=== PATIENT | male | born 1935 | race Caucasian/White ===

== ENCOUNTER 2016-09-18 03:10 | Inpatient (IN) | payer MEDICARE ==
[~2016-09-18] VITALS: Ht 170.2 cm; Wt 70.0 kg
[~2016-09-18 03:10] MED LIST: CARV12.52 PO; CLON1 PO; CLOP75 PO; D31000CA PO; DUONI NEB; FURO10S PO; GABA300C3 PO; LIDO5DIS35 TD; LISI-360 PO; POTA10IN2 PO; TAMS0.4C67 PO; UMEC1AER; VENTAER INH; ZOCO80TA PO; voltaren gel
[2016-09-18 03:22] VITALS: BP 126/72; PULSE 74; RESP 18; TEMP 98.4; O2SAT 96
[2016-09-18] MEDS ORDERED: GABA100C4 PO (03:33)
[2016-09-18] MEDS ORDERED: VITA100018 PO (03:33)
[2016-09-18] MEDS ORDERED: K-TA10TA PO (03:33)
[2016-09-18] MEDS ORDERED: CLON1TAB PO (03:33)
[2016-09-18] MEDS ORDERED: TAMS0.4C4 PO (03:33)
[2016-09-18] MEDS ORDERED: CARV12.52 PO (03:33)
[2016-09-18] MEDS ORDERED: SIMV40TA PO (03:33)
[2016-09-18] MEDS ORDERED: CLOP75TA PO (03:33)
[2016-09-18] MEDS ORDERED: FURO20TA PO (03:33)
[2016-09-18] MEDS ORDERED: LISI-519 PO (03:33)
--- NOTE | 2016-09-18 03:39 | PD ---
HPI Chief Complaint: Neuro Symptoms/ Deficits Time Seen by Provider: 03:32 Travel History International Travel<30 days: No Contact w/Intl Traveler<30days: No Traveled to known affect area: No History of Present Illness HPI Patient 81-year-old male with a history of stroke presents emergency Department with his spouse for complaints of increased weakness over the past 48 hours. Per his patient is become quite weak and has fallen multiple times overnight which prompted her to bring him into the emergency department. She is also noticed increased slurred speech during this time. No fevers no chest pain or shortness of breath no headache. PFSH Past Medical History Hx Anticoagulant Therapy: Yes (PLAVIX) Arthritis: Yes Blood Disorders: No Anxiety: Yes Depression: Yes Cancer: No Cardiac Catheterization: Yes (1989, 1995) Cardiovascular Problems: Yes ([place], HTN, CHOL) High Cholesterol: Yes Chest Pain: Yes Congestive Heart Failure: Yes Cerebrovascular Accident: Yes (CVA) Coronary Artery Disease: Yes Diabetes: No Diminished Hearing: No Endocrine: Yes GERD: Yes Genitourinary: No Headaches: Yes Herniated Disk: Yes Hypertension: Yes Immune Disorder: No Musculoskeletal: Yes Neurologic: Yes (TREMORS) Psychiatric: No Reproductive: No Respiratory: Yes (COPD) Myocardial Infarction: Yes Ulcer: Yes Tetanus Vaccination: Unknown Influenza Vaccination: No Past Surgical History Abdominal Surgery: Yes (bleeding ulcer in stomach surgery) Body Medical Devices: 3 stents Cardiac Surgery: Yes (CABG X5 IN 2005 ) Coronary Artery Bypass Graft: Yes (CABG X 5 IN 2005) Coronary Stent: Yes Tonsillectomy: Yes Other Surgery: Yes Social History Alcohol Use: No Tobacco Use: Yes (1/2 PACK A DAY ) Substance Use: No Allergies-Medications (Allergen,Severity, Reaction): Coded Allergies: No Known Allergies (Verified , 12/28/15) Reported Meds & Prescriptions Reported Meds & Active Scripts Active Reported Proair Hfa 8.5 GM Inh (Albuterol Sulfate) 90 Mcg/Act Aer 1 Puff INH Q4H PRN 108 mcg/actuation Spiriva Respimat Inh (Tiotropium Inh) 2.5 Mcg/Act Aero 2 Puff INH DAILY 2.5 mcg = 1 inhalation Metformin (Metformin HCl) 500 Mg Tab 500 Mg PO BIDPC With meals Sertraline (Sertraline HCl) 25 Mg Tab 25 Mg PO DAILY Vitamin D3 (Cholecalciferol) 1,000 Unit Tab 1,000 Units PO DAILY K-Tab (Potassium Chloride) 10 Meq Tab 10 Meq PO BID PRN Simvastatin 40 Mg Tab 40 Mg PO HS Furosemide 20 Mg Tab 20 Mg PO DAILY PRN Carvedilol 12.5 Mg Tab 12.5 Mg PO BID Lisinopril 5 Mg Tab 5 Mg PO DAILY Clopidogrel (Clopidogrel Bisulfate) 75 Mg Tab 75 Mg PO DAILY Clonazepam 1 Mg Tab 1 Mg PO HS Tamsulosin (Tamsulosin HCl) 0.4 Mg Cap 0.4 Mg PO HS Gabapentin 100 Mg Cap 100-300 Mg PO HS PRN Review of Systems Except as stated in HPI: all other systems reviewed are Neg Physical Exam Narrative GENERAL: Well-developed, well-nourished, appears older than stated age in no apparent distress. SKIN: Focused skin assessment warm/dry. HEAD: Atraumatic. Normocephalic. EYES: Pupils equal and round. No scleral icterus. No injection or drainage. ENT: No nasal bleeding or discharge. Mucous membranes pink and moist. NECK: Trachea midline. No JVD. CARDIOVASCULAR: Regular rate and rhythm. No murmur appreciated. RESPIRATORY: No accessory muscle use. Clear to auscultation. Breath sounds equal bilaterally. GASTROINTESTINAL: Abdomen soft, non-tender, nondistended. Hepatic and splenic margins not palpable. MUSCULOSKELETAL: No obvious deformities. No clubbing. No cyanosis. No edema. NEUROLOGICAL: Awake and alert. No nerves II through XII are grossly intact and nonfocal, 5 out of 5 strength in all 4 extremity's. PSYCHIATRIC: Appropriate mood and affect; insight and judgment normal. Data Data Last Documented VS Vital Signs Date Time Temp Pulse Resp B/P Pulse Ox O2 Delivery O2 Flow Rate FiO2 09/18/16 06:47 68 18 138/65 100 Room Air 09/18/16 03:22 98.4 Orders Electrocardiogram (09/18/16 03:32) Complete Blood Count With Diff (09/18/16 03:32) Comprehensive Metabolic Panel (09/18/16 03:32) Creatine Kinase (Cpk) (09/18/16 03:32) Prothrombin Time / Inr (Pt) (09/18/16 03:32) Act Partial Throm Time (Ptt) (09/18/16 03:32) Troponin I (09/18/16 03:32) Urinalysis - C+S If Indicated (09/18/16 03:32) Chest, Single Ap (09/18/16 03:32) Ct Brain W/O Iv Contrast(Rout) (09/18/16 03:32) Blood Glucose (09/18/16 03:32) Ecg Monitoring (09/18/16 03:32) Iv Access Insert/Monitor (09/18/16 03:32) Oximetry (09/18/16 03:32) Sodium Chloride 0.9% Flush (Ns Flush) (09/18/16 03:45) Hip, Ap Only W Ap Pelvis (09/18/16 ) Admit To Inpatient (09/18/16 ) Code Status (09/18/16 07:38) Vital Signs (Adult) Q4H (09/18/16 07:38) Activity Oob With Assistance (09/18/16 07:38) Morgue Technician / Telemetry .CONTINUOUS (09/18/16 07:38) Diet Heart Healthy (09/18/16 Breakfast) Sodium Chloride 0.9% Flush (Ns Flush) (09/18/16 07:45) Sodium Chloride 0.9% Flush (Ns Flush) (09/18/16 09:00) Acetaminophen (Tylenol) (09/18/16 07:45) Ondansetron Inj (Zofran Inj) (09/18/16 07:45) Temazepam (Restoril) (09/18/16 07:45) Pt Request For Service (09/18/16 07:38) Scd Bilateral/Knee High JAILYN.BID (09/18/16 07:38) Naloxone Inj (Narcan Inj) (09/18/16 07:45) Magnesium Hydroxide Liq (Milk Of Magnesi (09/18/16 07:45) Inpatient Certification (09/18/16 ) Echo 2d Comp With Doppler (09/18/16 ) Holter Monitor Recording (09/18/16 ) Thyroid Stimulating Hormone (09/18/16 07:41) Free Thyroxine (T4) (09/18/16 07:41) Rapid Plasma Regin (Rpr) W Ttr (09/18/16 07:41) Vitamin B12 (09/18/16 07:41) Folate, Serum (09/18/16 07:41) Ammonia (09/18/16 07:41) Mra Brain W/O Contrast (Cow) (09/18/16 ) Us Carotid Arteries Comp Bilat (09/18/16 ) Mri Brain W/O Contrast (09/18/16 ) Admit Order (Ed Use Only) (09/18/16 07:52) Labs Laboratory Tests Test 09/18/16 04:00 White Blood Count 6.5 TH/MM3 Red Blood Count 4.48 MIL/MM3 Hemoglobin 14.5 GM/DL Hematocrit 43.6 % Mean Corpuscular Volume 97.2 FL Mean Corpuscular Hemoglobin 32.4 PG Mean Corpuscular Hemoglobin 33.3 % Concent Red Cell Distribution Width 13.3 % Platelet Count 155 TH/MM3 Mean Platelet Volume 8.8 FL Neutrophils (%) (Auto) 53.1 % Lymphocytes (%) (Auto) 29.5 % Monocytes (%) (Auto) 10.0 % Eosinophils (%) (Auto) 6.9 % Basophils (%) (Auto) 0.5 % Neutrophils # (Auto) 3.5 TH/MM3 Lymphocytes # (Auto) 1.9 TH/MM3 Monocytes # (Auto) 0.7 TH/MM3 Eosinophils # (Auto) 0.4 TH/MM3 Basophils # (Auto) 0.0 TH/MM3 CBC Comment DIFF FINAL Differential Comment Prothrombin Time 11.3 SEC Prothromb Time International 1.0 RATIO Ratio Activated Partial 25.8 SEC Thromboplast Time Sodium Level 143 MEQ/L Potassium Level 4.0 MEQ/L Chloride Level 109 MEQ/L Carbon Dioxide Level 24.5 MEQ/L Anion Gap 10 MEQ/L Blood Urea Nitrogen 22 MG/DL Creatinine 1.41 MG/DL Estimat Glomerular Filtration 48 ML/MIN Rate Random Glucose 93 MG/DL Calcium Level 8.6 MG/DL Total Bilirubin 0.4 MG/DL Aspartate Amino Transf 19 U/L (AST/SGOT) Alanine Aminotransferase 24 U/L (ALT/SGPT) Alkaline Phosphatase 94 U/L Total Creatine Kinase 139 U/L Troponin I LESS THAN 0.02 NG/ML Total Protein 6.7 GM/DL Albumin 3.6 GM/DL [facility] Medical Decision Making Medical Screen Exam Complete: Yes Emergency Medical Condition: Yes Differential Diagnosis Subacute stroke, vascular dementia, electro-light abnormality, dehydration, urinary tract infection. Narrative Course Patient was roomed emergency department, his laboratory workup was initiated. His is highly concerned about his ability to go home given his weakness and frequent falls at home. I am in agreement. Awaiting for a return page from [facility]. I have discussed with case management and they're pursuing a [id number] performed for the patient. Diagnosis Primary Impression: Weakness Additional Impression: CVA (cerebral vascular accident) Admitting Information Admitting Physician Requests: Observation Condition: Stable Rd Holder MD Sep 18, 2016 03:39
[2016-09-18] MEDS ORDERED: SODIUM CHLORIDE 0.9% FLUSH 5 ML FLUSH IV FLUSH PRN (03:45)
--- NOTE | 2016-09-18 03:57 | RADRPT ---
EXAM DATE/TIME: 09/18/2016 03:43 [facility] COMPARISON: Report only MRI BRAIN W/O CONTRAST, September 04, 2009, 12:29. INDICATIONS : Altered mental status. RADIATION DOSE: 42.22 CTDIvol (mGy) MEDICAL HISTORY : Cerebrovascular disease. Myocardial infarction. Hypertension. SURGICAL HISTORY : CABG Coronary artery stent. ENCOUNTER: Initial ACUITY: 1 day PAIN SCALE: 0/10 LOCATION: cranial TECHNIQUE: Multiple contiguous axial images were obtained of the head. Using automated exposure control and adj ustment of the mA and/or kV according to patient size, radiation dose was kept as low as reasonably a chievable to obtain optimal diagnostic quality images. FINDINGS: CEREBRUM: The ventricles are normal for age. No evidence of midline shift, mass lesion, hemorrhage or acute in farction. No extra-axial fluid collections are seen. Old right middle cerebral artery infarct noted. POSTERIOR FOSSA: The cerebellum and brainstem are intact. The 4th ventricle is midline. The cerebellopontine angle i s unremarkable. EXTRACRANIAL: The visualized portion of the orbits is intact. There is mucoperiosteal thickening of the visualized ethmoid air cells. SKULL: The calvaria is intact. No evidence of skull fracture. CONCLUSION: 1. No acute intracranial abnormality. 2. Remote right middle cerebral artery distribution infarct. 3. Mild sinusitis. Charles Diez MD on September 18, 2016 at 3:54 Board Certified Radiologist. This report was verified electronically.
[2016-09-18 04:30] VITALS: BP 126/72; PULSE 70; RESP 18; O2SAT 99
[2016-09-18 04:33] LABS: AUTOMATED NEUTROPHIL # 3.5 TH/MM3 (1.8-7.7); BASOPHIL % 0.5 % (0.0-2.0); EOSINOPHIL # 0.4 TH/MM3 (0-0.4); EOSINOPHIL % 6.9 % (0.0-4.0); HEMATOCRIT 43.6 % (39.0-51.0); HEMO FLAGS DIFF FINAL; LYMPH % 29.5 % (9.0-44.0); LYMPHOCYTE # 1.9 TH/MM3 (1.0-4.8); MEAN CELL VOLUME 97.2 FL (80.0-100.0); MEAN CORPUSCULAR HEMOGLOBIN 32.4 PG (27.0-34.0); MEAN CORPUSCULAR HGB CONC 33.3 % (32.0-36.0); NEUT % 53.1 % (16.0-70.0); PLATELET COUNT 155 TH/MM3 (150-450); RED BLOOD COUNT 4.48 MIL/MM3 (4.50-5.90); RED CELL DISTRIBUTION WIDTH 13.3 % (11.6-17.2); WHITE BLOOD COUNT 6.5 TH/MM3 (4.0-11.0)
--- NOTE | 2016-09-18 04:47 | RADRPT ---
EXAM DATE/TIME: 09/18/2016 03:52 [facility] COMPARISON: No previous studies available for comparison. INDICATIONS : Syncopal episode. Possible stroke. MEDICAL HISTORY : Chronic obstructive pulmonary disease. Stroke. Hypertension. Diabetes. SURGICAL HISTORY : CABG. Cardiac cath. ENCOUNTER: Initial ACUITY: 1 day PAIN SCORE: Non-responsive. LOCATION: chest FINDINGS: No infiltrate, effusion or pneumothorax. Heart size stable, upper limits of normal. Previous median s ternotomy and coronary artery bypass graft operation. CONCLUSION: No evidence of acute cardiopulmonary disease. Charles Diez MD on September 18, 2016 at 4:45 Board Certified Radiologist. This report was verified electronically.
--- NOTE | 2016-09-18 04:48 | RADRPT ---
EXAM DATE/TIME: 09/18/2016 03:48 [facility] COMPARISON: No previous studies available for comparison. INDICATIONS : Pain in right hip. Patient had a fall tonight. MEDICAL HISTORY : None. SURGICAL HISTORY : None. ENCOUNTER: Initial ACUITY: 1 day PAIN SCORE: Non-responsive. LOCATION: Right Hip FINDINGS: View of the right hip and pelvis was obtained. Femoral neck is intact. No fracture is seen. The so ft tissues are unremarkable. CONCLUSION: Intact hip and pelvis. Charles Diez MD on September 18, 2016 at 4:46 Board Certified Radiologist. This report was verified electronically.
[2016-09-18 04:51] LABS: APTT (PATIENT) 25.8 SEC (24.3-30.1); PROTHROMBIN TIME - PATIENT 11.3 SEC (9.8-11.6)
[2016-09-18 05:05] LABS: ALT (GPT) 24 U/L (12-78); ANION GAP 10 MEQ/L (5-15); AST (GOT) 19 U/L (15-37); BICARBONATE 24.5 MEQ/L (21.0-32.0); BLOOD UREA NITROGEN 22 MG/DL (7-18); CHLORIDE 109 MEQ/L (98-107); GLOMERULAR FILTRATION RATE 48 ML/MIN (>89); SODIUM (NA) 143 MEQ/L (136-145)
[2016-09-18 05:09] LABS: ALKALINE PHOSPHATASE 94 U/L (45-117); CREATINE KINASE 139 U/L (39-308); TOTAL BILIRUBIN ADULT 0.4 MG/DL (0.2-1.0)
[2016-09-18 05:22] VITALS: BP 114/66; PULSE 72; RESP 18; O2SAT 97
[2016-09-18 06:47] VITALS: BP 138/65; PULSE 68; RESP 18; O2SAT 100
[2016-09-18] MEDS ORDERED: ONDANSETRON HCL 4 MG/2 ML VIAL IVP PRN (07:45)
[2016-09-18] MEDS ORDERED: ACETAMINOPHEN 325 MG TAB PO PRN (07:45)
[2016-09-18] MEDS ORDERED: NALOXONE HCL 0.4 MG/ML AMP IV PRN (07:45)
[2016-09-18] MEDS ORDERED: MAGNESIUM HYDROXIDE SUSP 30 ML CUP PO PRN (07:45)
[2016-09-18] MEDS ORDERED: SODIUM CHLORIDE 0.9% FLUSH 10 ML FLUSH IV FLUSH PRN (07:45)
[2016-09-18] MEDS ORDERED: TEMAZEPAM 15 MG CAP PO PRN (07:45)
[2016-09-18 08:00] VITALS: BP 135/63; PULSE 68; RESP 18; O2SAT 100
[2016-09-18] MEDS ORDERED: SODIUM CHLORIDE 0.9% FLUSH 10 ML FLUSH IV FLUSH SCH (09:00)
--- NOTE | 2016-09-18 09:04 | HHI.HP ---
HPI Service [facility] Hospitalists Primary Care Physician Alexis Young, DO Admission Diagnosis weakness Travel History International Travel<30 Days: No Contact w/Intl Traveler <30 Da: No Traveled to Known Affected Are: No History of Present Illness Mr. Allison is an 81 y/o male with diabetes mellitus, hx of CAD/UT and hx of CVA in 2009 who presented to the ED at [facility] on 09/18/16 with his spouse for reported increased weakness over the past 48 hours. Per his patient he has become quite weak and has fallen multiple times overnight which prompted her to bring him into the emergency department. She has also noticed some questionable slurred speech during this time. No fevers, dizziness, chest pain , shortness of breath or headache. Head CT showed no acute intracranial abnormality, remote right middle cerebral artery distribution infarct, and mild sinusitis. Pts labs were relatively stable. Review of Systems Constitutional: DENIES: Fever, Chills, Dizziness Respiratory: DENIES: Shortness of breath Cardiovascular: DENIES: Chest pain Gastrointestinal: DENIES: Abdominal pain, Nausea, Vomiting Integumentary: DENIES: Rash Neurologic: COMPLAINS OF: Poor Balance, DENIES: Headache Past Family Social History Past Medical History CAD with hx of [place] Hx of CVA, in 2009 Cardiomyopathy Hyperlipidemia Diabetes mellitus, type 2 DDD Sciatica Hx of perforated PUD CKD, stage 3 COPD LE edema Depression Past Surgical History Arthroscopic knee surgery CABG x 5 in 2005 Coronary stenting AICD placement in 2006 Reported Medications -Vitamin D3 2,000 Units PO DAILY -K-Tab 10 Meq PO BID with Lasix PRN -Simvastatin 40 Mg PO HS -Furosemide 20 Mg PO DAILY PRN swelling -Carvedilol 12.5 Mg PO BID -Lisinopril 5 Mg PO DAILY -Clopidogrel (Clopidogrel Bisulfate) 75 Mg Tab 75 Mg PO DAILY -Clonazepam 1 Mg PO HS -Tamsulosin (Tamsulosin HCl) 0.4 Mg Cap 0.4 Mg PO HS -Gabapentin 100-300 Mg PO HS PRN Neuropathy ?Metformin 500 Mg PO BID ?Sertraline 25 Mg PO DAILY ?ProAir HFA 90mcg/Inh ii PUFFS Q4H PRN ?Spiriva 60 2.5mcg/5 Inh DAILY Allergies: Coded Allergies: No Known Allergies (Verified , 12/28/15) Family History Father at 70 y/o with CHF/CAD Social History No reported alcohol, tobacco or illicit drug use Physical Exam Vital Signs Vital Signs Date Time Temp Pulse Resp B/P Pulse Ox O2 Delivery O2 Flow Rate FiO2 09/18/16 08:00 68 18 135/63 100 Room Air 09/18/16 06:47 68 18 138/65 100 Room Air 09/18/16 05:22 72 18 114/66 97 Room Air 09/18/16 04:30 70 18 126/72 99 Room Air 09/18/16 03:31 Room Air 09/18/16 03:22 98.4 74 18 126/72 96 Physical Exam GENERAL: This is a well-nourished, well-developed patient, in no apparent distress. HEENT: Atraumatic. Normocephalic. No temporal or scalp tenderness. No scleral icterus. Airway patent. NECK: Trachea midline, supple, nontender. CARDIO: Regular. RESP: CTA bilaterally. No wheezes, rales, or rhonchi. ABD: +BS, soft, non-tender, nondistended. EXT: Extremities without clubbing, cyanosis, or edema. NEURO: Awake and alert. Motor and sensory grossly within normal limits. Laboratory Laboratory Tests Test 09/18/16 04:00 White Blood Count 6.5 Red Blood Count 4.48 Hemoglobin 14.5 Hematocrit 43.6 Mean Corpuscular Volume 97.2 Mean Corpuscular Hemoglobin 32.4 Mean Corpuscular Hemoglobin 33.3 Concent Red Cell Distribution Width 13.3 Platelet Count 155 Mean Platelet Volume 8.8 Neutrophils (%) (Auto) 53.1 Lymphocytes (%) (Auto) 29.5 Monocytes (%) (Auto) 10.0 Eosinophils (%) (Auto) 6.9 Basophils (%) (Auto) 0.5 Neutrophils # (Auto) 3.5 Lymphocytes # (Auto) 1.9 Monocytes # (Auto) 0.7 Eosinophils # (Auto) 0.4 Basophils # (Auto) 0.0 CBC Comment DIFF FINAL Differential Comment Prothrombin Time 11.3 Prothromb Time International 1.0 Ratio Activated Partial 25.8 Thromboplast Time Sodium Level 143 Potassium Level 4.0 Chloride Level 109 Carbon Dioxide Level 24.5 Anion Gap 10 Blood Urea Nitrogen 22 Creatinine 1.41 Estimat Glomerular Filtration 48 Rate Random Glucose 93 Calcium Level 8.6 Total Bilirubin 0.4 Aspartate Amino Transf 19 (AST/SGOT) Alanine Aminotransferase 24 (ALT/SGPT) Alkaline Phosphatase 94 Total Creatine Kinase 139 Troponin I LESS THAN 0.02 Total Protein 6.7 Albumin 3.6 Result Diagram: 09/18/1639909/18/16399 Imaging Last Impressions Head CT 09/18/162 Signed Impressions: Service Date/Time: Sunday, September 18, 2016 03:43 - CONCLUSION: 1. No acute intracranial abnormality. 2. Remote right middle cerebral artery distribution infarct. 3. Mild sinusitis. Charles Diez MD Chest X-Ray 09/18/162 Signed Impressions: Service Date/Time: Sunday, September 18, 2016 03:52 - CONCLUSION: No evidence of acute cardiopulmonary disease. Charles Diez MD Hip and Pelvis X-Ray 09/18/16 0000 Signed Impressions: Service Date/Time: Sunday, September 18, 2016 03:48 - CONCLUSION: Intact hip and pelvis. Charles Diez MD Assessment and Plan Problem List: (1) Weakness Status: Chronic Plan: - Pt is an 81 y/o male with CAD/hx of UT, diabetes mellitus, and hx of CVA in 2009. - He presented to the ED at [facility] on 09/18/16 with his spouse for reported increased weakness over the past 48 hours. with multiple falls at home. She has also noticed some questionable slurred speech during this time. - Head CT showed no acute intracranial abnormality, remote right middle cerebral artery distribution infarct, and mild sinusitis. - Pts labs were relatively stable. - MRI Brain (09/18) --> Old infarct in the right Sylvian region, no evidence of new ischemic changes, moderate periventricular white matter changes - MRA Brain (09/18) --> Truncation of the right posterior cerebral artery in the region of the P3 segment, may represent a distal occlusion, intracranial vessels are otherwise patent without aneurysmal disease, anatomic variant of the COW. - Carotid US --> pending - 2D echo --> pending - Holter Monitor --> pending - Home BP meds resumed - Plavix resumed - Supportive care - Pt being admitted for observation to r/o possible TIA - DVT prophylaxis (2) History of CVA (cerebrovascular accident) Status: Chronic Plan: - Pt with previous hx of CVA - Home meds resumed, BB/LAURO/Plavix/Statin (3) COPD (chronic obstructive pulmonary disease) Status: Chronic Plan: - Cont. Spiriva (4) Diabetes mellitus type 2, noninsulin dependent Status: Chronic Plan: - NovoLog SSI - Home OHA (5) CAD (coronary artery disease) Status: Chronic Plan: - Home meds continued Assessment and Plan Patient examined. Assessment and plan formulated with Emelina Ramirez PA-C. I agree with the above. MRI brain (09/18/16) - NO acute findings MRA brain (09/18/16) - area of restriction at posterior cerebral artery - echo --> pending interpretation - holter --> pending - overall, sounds like pt has Failure to Thrive - Per pt's , this has happened before and pt benefitted from SNF - Pt adamantly refuses SNF - Pt refuses continued hospitalization - I have arranged for HHC with Home PT upon discharge - Case d/w [facility] Case Management. They will offer pt enrollment in [facility] complex case mgmt program. Physician Certification 2 Midnight Certification Type: Admission for Inpatient Services Order for Inpatient Services The services are ordered in accordance with Medicare regulations or non- Medicare payer requirements, as applicable. In the case of services not specified as inpatient-only, they are appropriately provided as inpatient services in accordance with the 2-midnight benchmark. Estimated LOS (days): 2 2 days is the estimated time the patient will need to remain in the hospital, assuming treatment plan goals are met and no additional complications. Post-Hospital Plan: Not yet determined Emelina Ramirez Sep 18, 2016 09:04 Urban Dixon DO Sep 18, 2016 15:56
--- NOTE | 2016-09-18 09:43 | RADRPT ---
EXAM DATE/TIME: 09/18/2016 08:58 [facility] COMPARISON: No previous studies available for comparison. INDICATIONS : Slurred speech. MEDICAL HISTORY : Cerebrovascular disease. Myocardial infarction. Hypertension. SURGICAL HISTORY : Tonsillectomy. CABG, ulcer ENCOUNTER: Subsequent ACUITY: 1 day PAIN SCORE: 0/10 LOCATION: cranial Please note a normal MRA of the brain does not entirely exclude the possibility of a small aneurysm, nor the possibility of distal intracranial vessel disease. TECHNIQUE: 3D time of flight MRA was performed. Source images, multiplanar STS MIP, and 3D volume MIP reconstru ctions were reviewed. FINDINGS: There is excellent visualization of the major intracranial arteries out to the second-order branch ve ssels. There is no evidence for aneurysm and no evidence for vascular malformation. However, the rig ht posterior C1 appears to be truncated after the P3 segment which may represent focal occlusion. Int racranial vessels are otherwise patent. 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 The anterior to indicating artery is patent. 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 CONCLUSION: 1. Truncation of the right posterior cerebral artery in the region of the P3 segment. This may repres ent distal occlusion. Intracranial vessels are otherwise patent without aneurysmal disease. 2. Anatomic variant of the [place] as detailed above. Miah Mercedes MD on September 18, 2016 at 9:38 Board Certified Radiologist. This report was verified electronically.
--- NOTE | 2016-09-18 09:53 | RADRPT ---
EXAM DATE/TIME: 09/18/2016 08:58 [facility] COMPARISON: MRI BRAIN W/O CONTRAST, September 04, 2009, 12:29. INDICATIONS : Slurred speech. MEDICAL HISTORY : Hypertension. Myocardial infarction. Cerebrovascular disease. SURGICAL HISTORY : Tonsillectomy. CABG, ulcer ENCOUNTER: Subsequent ACUITY: 1 day PAIN SCORE: 0/10 LOCATION: Cranial TECHNIQUE: Multiplanar, multisequence MRI of the brain was performed without contrast. FINDINGS: There is no an old infarct in the right Sylvian region. Moderate periventricular white matter change s are noted. There is no new areas of restricted diffusion evident. Ventricular size is appropriate. There are no extraaxial fluid collections appreciated. Midline str uctures are intact. There is no parenchymal hemorrhage evident. CONCLUSION: 1. Old infarct in the right Sylvian region. 2. I do not see any evidence for new ischemic changes on the diffusion weighted imaging. 3. Moderate periventricular white matter changes. Connor Aguilar MD FACR on September 18, 2016 at 9:43 Board Certified Radiologist. This report was verified electronically.
[2016-09-18 10:00] VITALS: BP 129/75; PULSE 68; RESP 17; O2SAT 100
[2016-09-18] MEDS ORDERED: TIOT12.9 INH (11:05)
[2016-09-18] MEDS ORDERED: ALBUAER3 INH (11:05)
[2016-09-18] MEDS ORDERED: METF500T PO (11:05)
[2016-09-18] MEDS ORDERED: SERT25TA83 PO (11:05)
--- NOTE | 2016-09-18 11:55 | RADRPT ---
EXAM DATE/TIME: 09/18/2016 10:12 [facility] COMPARISON: No previous studies available for comparison. INDICATIONS : Transient ischemic attack. MEDICAL HISTORY : Myocardial infarction. Hypercholesterolemia. Arthritis. Tremors. CVA. HTN. CAD. Chest pain. COPD. HAY D. Herniated disk. Ulcer. Anticoagulant therapy, Plavix. Depression. Anxiety. SURGICAL HISTORY : Tonsillectomy. CABG. Coronary artery stent. Cardiac cath. Bleeding ulcer in stomach surgery. Back majo shanon. ENCOUNTER: Initial ACUITY: 1 day PAIN SCORE: 2/10 LOCATION: Bilateral neck PEAK SYSTOLIC VELOCITIES (cm/sec): ICA/CCA RATIO: Right: 1.3 Left: 1.8 ICA: Right: 76 Left: 122 CCA: Right: 57 Left: 69 ECA: Right: 98 Left: 88 VERTEBRAL: Right: 45 antegrade Left: 57 antegrade Elevated flow velocities and ICA/CCA ratios have been found to correlate with increased degrees of vessel stenosis, calculated as percentage of diameter relative to a normal segment of distal ICA/CCA FINDINGS: RIGHT CAROTID: Mild scattered atherosclerotic plaque. No significant stenosis is visualized. The waveforms are with in normal limits. LEFT CAROTID: Calcified atherosclerotic plaque involving the ICA origin generating a 50% stenosis by Turcios scale abdulkadir lysis. The waveforms are within normal limits. VERTEBRAL ARTERIES: Antegrade flow is seen in both vertebral arteries. MISCELLANEOUS: None. CONCLUSION: 1. Calcified plaque bilaterally but more abundant on the left. The right carotid is patent. 50% steno sis on the left. 2. Antegrade flow involving both vertebral arteries. Simeon Madden Jr., MD on September 18, 2016 at 11:50 Board Certified Radiologist. This report was verified electronically.
[2016-09-18] MEDS ORDERED: SERTRALINE HCL 50 MG TAB PO SCH (12:00)
[2016-09-18] MEDS: INSULIN ASPART SUPPLEMENTAL SCALE SQ SCH ×2 (12:00→16:00)
[2016-09-18] MEDS ORDERED: PT OWN MED: SPIRIVA RESPIMAT 2 INH DAILY INH SCH (12:00)
[2016-09-18] MEDS ORDERED: CLOPIDOGREL 75 MG TAB PO SCH (12:00)
[2016-09-18 12:54] LABS: FREE T4 0.86 NG/DL (0.76-1.46)
--- NOTE | 2016-09-18 15:57 | HHI.FF ---
Face to Face Verification Diagnosis: (1) Weakness (2) History of CVA (cerebrovascular accident) (3) CAD (coronary artery disease) (4) Diabetes mellitus type 2, noninsulin dependent (5) Right knee DJD (6) COPD (chronic obstructive pulmonary disease) Physical Therapy Order: Evaluate and Treat, Improve ambulation, Strength and gait training Home Health Nursing Order: Medical education Signs/symptoms of disease process Diabetic education Medication education-adverse effect Nursing assessment with vital signs I have seen patient Ivan Allison on 09/18/16. My clinical findings support the need for the requested home health care services because: Ltd mobility - disease progression Deconditioned w/ increased weakness Med compliance is questionable Limited ability to care for self Need for psychosocial assistance Impaired cognition/judgement I certify that my clinical findings support that this patient is homebound because: Impaired cognitive ability/safety Unsteady gait/balance Unsafe to leave home unassisted Need for psychosocial assistance Efg-atrsdzhvgf-xiqgolpr bed/chair Unable to use public transportation Urban Dixon DO Sep 18, 2016 15:57
--- NOTE | 2016-09-18 16:51 | ECHRPT ---
Indication: cva/tia CONCLUSIONS Severely dilated left ventricle. The left ventricular systolic function is severely reduced with an estimated ejection fraction less than 20%. There is global left ventricular dysfunction. Trace mitral valve regurgitation. Csrti-rc-zjkp mitral valve regurgitation. There is mild tricuspid valve regurgitation. Normal estimated pulmonary pressures. BP: 114 / 66 HR: 72 Rhythm: Sinus MEASUREMENTS (Male / Female) Normal Values Technical Quality:Fair 2D ECHO LV Diastolic Diameter PLAX 7.1 cm 4.2 - 5.9 / 3.9 - 5.3 cm LV Systolic Diameter PLAX 6.7 cm IVS Diastolic Thickness 0.9 cm 0.6 - 1.0 / 0.6 - 0.9 cm LVPW Diastolic Thickness 1.1 cm 0.6 - 1.0 / 0.6 - 0.9 cm LV Relative Wall Thickness 0.3 RV Internal Dim ED PLAX 2.3 cm M-MODE Aortic Root Diameter MM 3.5 cm LA Systolic Diameter MM 4.4 cm LA Ao Ratio MM 1.3 AV Cusp Separation MM 1.8 cm DOPPLER LV E' Lateral Velocity 23.2 cm/s LV E' Septal Velocity 5.2 cm/s TR Peak Velocity 216.0 cm/s TR Peak Gradient 18.7 mmHg FINDINGS LEFT VENTRICLE Severely dilated left ventricle. The left ventricular systolic function is severely reduced with an estimated ejection fraction less than 20%. There is global left ventricular dysfunction. MITRAL VALVE Trace mitral valve regurgitation. Emkdn-yt-skct mitral valve regurgitation. TRICUSPID VALVE There is mild tricuspid valve regurgitation. Normal estimated pulmonary pressures. OTHER FINDINGS dilated LV Mr/tr ef 15% Larui Galloway MD (Electronically Signed) Final Date:18 September 2016 16:51
--- NOTE | 2016-09-18 17:29 | EKG ---
Date Performed: 09/18/2016 Time Performed: 04:20:49 PTAGE: 81 years EKG: Sinus rhythm POSSIBLE RIGHT VENTRICULAR CONDUCTION DELAY SEPTAL MYOCARDIAL INFARCTION DIFFUSE ST-T CHANGES ABNORM AL ECG PREVIOUS TRACING : 12/28/2015 10.05 Compared to prior tracing no significant change DOCTOR: Helen Patrick Interpretating Date/Time 09/18/2016 17:27:58
[2016-09-18] MEDS ORDERED: PRAVASTATIN SOD 80 MG TAB PO SCH (21:00)
[2016-09-18] MEDS ORDERED: CARVEDILOL 12.5 MG TAB PO SCH (21:00)
[2016-09-18] MEDS ORDERED: clonazePAM 1 MG TAB PO SCH (21:00)
[2016-09-18] MEDS ORDERED: TAMSULOSIN HCL 0.4 MG CAP PO SCH (21:00)
[2016-09-19] MEDS ORDERED: LISINOPRIL 5 MG TAB PO SCH (09:00)
[2016-09-21 14:32] LABS: RAPID PLASMA REAGIN SCREEN NON-REACTIVE (NON-REACTVE)
== END 2016-09-18 16:58 | disposition home health service (06) | DRG 641 ==
LOC: NEPC 03:10 → NEDA 07:54 → N06A 11:13
PROVIDERS: ADMIT Hospitalist; ATTEND Hospitalist
DX: R62.7 Adult failure to thrive (principal); I42.9 Cardiomyopathy, unspecified; E11.22 Type 2 diabetes mellitus with diabetic chronic kidney disease; Z79.84 Long term (current) use of oral hypoglycemic drugs; J44.9 Chronic obstructive pulmonary disease, unspecified; R29.6 Repeated falls; R53.1 Weakness; Z86.73 Personal history of transient ischemic attack (TIA), and cerebral infarction without residual deficits; I12.9 Hypertensive chronic kidney disease with stage 1 through stage 4 chronic kidney disease, or unspecified chronic kidney disease; N18.3 Chronic kidney disease, stage 3 (moderate); F32.9 Major depressive disorder, single episode, unspecified; I25.10 Atherosclerotic heart disease of native coronary artery without angina pectoris; I25.2 Old myocardial infarction; E78.5 Hyperlipidemia, unspecified; Z95.1 Presence of aortocoronary bypass graft; Z95.5 Presence of coronary angioplasty implant and graft; Z95.810 Presence of automatic (implantable) cardiac defibrillator; Z79.02 Long term (current) use of antithrombotics/antiplatelets; Z87.11 Personal history of peptic ulcer disease
CPT/HCPCS: 70450; 70544; 70551; 71010; 73501; 80053; 82140; 82550; 82607; 82746; 82948; 84439; 84443; 84484; 85025; 85610; 85730; 86592; 93005; 93306; 93880

== ENCOUNTER 2018-01-31 20:00 | Inpatient (IN) ==
[2018-01-31 21:24] LABS: Bilirubin,Urine Negative (Negative); Clarity,Urine Slightly Cloudy (Clear); Color,Urine Yellow (Yellw/Straw); Glucose,Urine (UA) Negative (Negative); Leukocyte Esterase,Urine Trace (Negative); Nitrite,Urine Negative (Negative); Specific Gravity,Urine 1.025 (1.002-1.035); Urobilinogen,Urine 0.2 mg/dL (Less than 2)
[2018-01-31 21:26] LABS: Baso % (Auto) 0.4 % (0.0-2.0); Eos # (Auto) 0.2 th/mm3 (0.0-0.4); Hemoglobin 13.4 gm/dL (13.0-17.0); Lymph # (Auto) 0.9 th/mm3 (1.0-4.8); Lymph % (Auto) 12.1 % (9.0-44.0); Mean Corpuscular HGB Conc 34.3 % (32.0-36.0); Mean Corpuscular Hemoglobin 33.3 pg (27.0-34.0); Mean Corpuscular Volume 97.1 fL (80.0-100.0); Mono # (Auto) 0.5 th/mm3 (0.0-0.9); Mono % (Auto) 6.7 % (0.0-8.0); Neut # (Auto) 5.7 th/mm3 (1.8-7.7); Neut % (Auto) 77.8 % (16.0-70.0); Platelet Count 123 th/mm3 (150-450); Red Blood Count 4.02 mil/mm3 (4.50-5.90); Red Cell Distribution Width 13.9 % (11.6-17.2); White Blood Count 7.3 th/mm3 (4.0-11.0)
[2018-01-31 21:29] LABS: Amorphous Sediment,Urine Moderate /hpf; Bacteria,Urine Few /hpf; RBC,Urine 0-3 /hpf (0-3); Squamous Epithelial Cell,Urine 0-5 /hpf (0-5)
[2018-01-31 21:30] LABS: Mucus,Urine Few /lpf (Occasional)
--- NOTE | 2018-01-31 21:34 | XR ---
EXAM DATE: 01/31/2018 8:59 PM EDT AGE/SEX: 83 years / Male INDICATIONS: Shortness of breath. CLINICAL DATA: This is the patient's initial encounter. Patient reports that signs and symptoms have been present for 3 days and indicates a pain score of 0/10. MEDICAL/SURGICAL HISTORY: Chronic obstructive pulmonary disease. Hypertension. Diabetes. Str miguel. CABG. Cardiac catheterization. [place] [facility] [place]. . FINDINGS: Lungs are symmetrically aerated with bibasilar atelectatic changes. There is also some prominent inte rstitial markings characteristic of some degree of vascular congestion or volume overload. There is s ome blunting of the costophrenic angles, particularly on the right which may represent small effusion s. Findings of prior CABG with intact median sternotomy wires small coronary ostial rings. Heart size is prominent. 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 Cardiomegaly with interstitial prominence and small bilateral pleural effusions suggesting some d egree of vascular congestion/failure. 2. Bibasilar atelectatic changes. 3. Findings of prior CABG. Electronically signed by: Miah Mercedes MD 01/31/2018 9:33 PM EDT
[2018-01-31 21:35] LABS: Chloride 111 meq/L (98-107); Potassium 4.4 meq/L (3.5-5.1); Sodium 142 meq/L (136-145)
[2018-01-31 21:37] LABS: Activated Partial Thrombo Time 26.2 sec (24.3-30.1); INR 1.1 Ratio; Prothrombin Time 11.5 sec (9.8-11.6)
[2018-01-31 21:38] LABS: Albumin 3.5 g/dL (3.4-5.0); Anion Gap 8 meq/L (5-15); Carbon Dioxide 23.1 meq/L (21.0-32.0); Glucose,Random 112 mg/dL (74-106); Magnesium 2.2 mg/dL (1.5-2.5)
[2018-01-31 21:39] LABS: Blood Urea Nitrogen 25 mg/dL (7-18)
[2018-01-31 21:41] LABS: Alanine Aminotransferase 15 U/L (12-78); Aspartate Aminotransferase 11 U/L (15-37)
[2018-01-31 21:42] LABS: Glomerular Filtration Rate 64 mL/min (>89)
[2018-01-31 21:43] LABS: Total Protein 6.2 g/dL (6.4-8.2)
[2018-01-31 21:44] LABS: Alkaline Phosphatase 70 U/L (45-117)
[2018-01-31 21:49] LABS: Creatine Kinase 95 U/L (39-308)
--- NOTE | 2018-01-31 22:11 | ED ---
HPI General Chief Complaint: Shortness of Breath/Dyspnea Stated Complaint: SOB Time Seen by Provider: 01/31/18 20:59 Source: patient and family Mode of arrival: ambulatory Limitations: no limitations History of Present Illness 83-year-old male presents to the emergency department private transportation in the care of his spouse with history of CHF COPD AR CVA with complaint of intermittent but progressive worsening shortness of breath since Wednesday. No reported orthopnea or PND. Patient has had dyspnea with exertion and at rest. He was seen by his primary care provider today and received Solu-Medrol and updraft treatments and was encouraged to restart his Lasix as needed in the a.m. Patient has also been having chest discomfort which she complains as rib pain. states he has chronic rib pain and chronic back pain. states that he takes psrz-nwk-ctzghia ibuprofen for symptom relief and has had issues with narcotic dependency in the past. Patient is not followed by a supervisor wood room for some time according to the patient's and no recent cardiac evaluation or stress test. 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 Complaint: Reports shortness of breath Onset (ago): day(s) Context: Reports occurred during exertion Severity: moderate Consistency/Duration: intermittent and progressively worsening Relieving factors: nothing Exacerbating factors: exertion, movement and coughing Known history of: Reports COPD and congestive heart failure Associated symptoms: Reports chest pain, cough, wheezing and chest congestion; Denies fever, sputum production, orthopnea, lower extremity pain, paresthesias, palpitations, hemoptysis, diaphoresis, nausea/vomiting and abdominal pain Treatment prior to arrival: Reports bronchodilator Related Data Home oxygen amount: none Home Medications Medication Instructions Recorded Confirmed Ventolin HFA 01/31/18 Vitamin D3 01/31/18 carvedilol 12.5 mg PO DAILY 01/31/18 01/31/18 clopidogrel 75 mg PO DAILY 01/31/18 01/31/18 diclofenac sodium [Voltaren] 01/31/18 furosemide 20 mg PO DAILY 01/31/18 01/31/18 gabapentin 300 mg PO DAILY 01/31/18 01/31/18 lisinopril 5 mg PO DAILY 01/31/18 01/31/18 potassium chloride [K-Tab] 10 meq PO BID 01/31/18 01/31/18 simvastatin 40 mg PO QPM 01/31/18 01/31/18 tamsulosin 0.4 mg PO DAILY 01/31/18 01/31/18 umeclidinium-vilanterol [Anoro 01/31/18 Ellipta] Allergies Allergy/AdvReac Type Severity Reaction Status Date / Time No Known Allergies Allergy Verified 01/31/18 21:25 Review of Systems ROS: all other systems reviewed are negative [facility] Medical History Medical History Enlarged prostate (Acute) History of CHF (congestive heart failure) (Acute) History of COPD (Acute) History of CVA (cerebrovascular accident) (Acute) History of hypertension (Acute) History of myocardial infarction (Acute) Surgical History Surgical History History of angioplasty (Acute) Hx of heart bypass surgery (Acute) Social History Social History Substance History: No History of Abuse Second Hand Smoke Exposure: Yes Smoking Status: Current every day smoker Tobacco Type: Cigarettes How Often Do You Have a Drink Containing Alcohol: Never Recent Travel in [facility] within the Last 8 Weeks: No Recent Out of Country Travel within the Last 8 Weeks: No Immunization History Tetanus Immunization: Unsure Exam Narrative Exam Narrative: GENERAL: Well-nourished, well-developed patient. No acute distress although appears mildly short of breath with movement about the stretcher and exerting himself. SKIN: Focused skin assessment warm/dry. HEAD: Normocephalic. EYES: No scleral icterus. No injection or drainage. NECK: Supple, trachea midline. No JVD or lymphadenopathy. CARDIOVASCULAR: Regular rate and rhythm without murmurs, gallops, or rubs. RESPIRATORY: Breath sounds equal bilaterally with basilar crackles and expiratory wheezing. No accessory muscle use. GASTROINTESTINAL: Abdomen soft, non-tender, nondistended. MUSCULOSKELETAL: No cyanosis, mild bilateral ankle edema. Radial and dorsalis pedis pulses 2+ to palpation BACK: Nontender without obvious deformity. No CVA tenderness. Course Consultations Consultation #1: patient discussed with and accepted for admission by Dr South Initial Documented Vital Signs Temperature 97.6 F 01/31/18 20:07 Pulse Rate 75 01/31/18 20:07 Respiratory Rate 24 01/31/18 20:07 Blood Pressure 103/57 L 01/31/18 20:07 Pulse Oximetry 97 01/31/18 20:07 Last Documented Vital Signs Temperature 97.6 F 01/31/18 20:43 Pulse Rate 72 01/31/18 22:46 Respiratory Rate 22 01/31/18 22:46 Blood Pressure 99/59 L 01/31/18 22:46 Pulse Oximetry 97 01/31/18 22:46 Medical Decision Making MDM Narrative Medical decision making narrative: 83-year-old male with history of CHF COPD AR CVA presents for intermittent but progressive worsening shortness of breath since Wednesday. No reported orthopnea or PND. Patient has had dyspnea with exertion and at rest. She was seen by his primary care provider today and received Solu-Medrol and updraft treatments and was encouraged to restart his Lasix 20 mg as needed in the a.m. Patient here presents with CHF and mild exacerbation of COPD or associated exacerbation of COPD patient given updraft treatments and low-dose Lasix due to review of medical records identifying echo 2016 with EF less than 20% and global hypokinesis. Also presenting with low normal systolic blood pressure. Patient and spouse aware of plan for admission for chf troponin I less than 0.02 , not elevated ck total not elevated however bnp 595 and cxr c/w vascular congestion and rales noted on auscultation of the bases; patient requesting pain medication but denies chest pain Patient given x 1 dose toradol Medical Screen Exam Complete: Yes Emergency Medical Condition: Yes Differential Diagnosis Differential Diagnosis: CHF, COPD, AR, pneumonia Medical Records Medical records reviewed: Yes I reviewed the patient's medical records. Lab Data Lab results reviewed: Yes I reviewed the patient's lab results. Result diagrams: 01/31/18 21:13 01/31/18 21:13 Lab Results 01/31/18 01/31/18 01/31/18 Range/Units 21:12 21:13 21:13 CBC w Diff Auto diff final WBC 7.3 (4.0-11.0) th/mm3 RBC 4.02 L (4.50-5.90) mil/mm3 Hgb 13.4 (13.0-17.0) gm/dL Hct 39.0 (39.0-51.0) % MCV 97.1 (80.0-100.0) fL MCH 33.3 (27.0-34.0) pg MCHC 34.3 (32.0-36.0) % RDW 13.9 (11.6-17.2) % Plt Count 123 L (150-450) th/mm3 MPV 9.0 (7.0-11.0) fL Neut % (Auto) 77.8 H (16.0-70.0) % Lymph % (Auto) 12.1 (9.0-44.0) % [place] % (Auto) 6.7 (0.0-8.0) % Eos % (Auto) 3.0 (0.0-4.0) % Baso % (Auto) 0.4 (0.0-2.0) % Neut # (Auto) 5.7 (1.8-7.7) th/mm3 Lymph # (Auto) 0.9 L (1.0-4.8) th/mm3 [place] # (Auto) 0.5 (0.0-0.9) th/mm3 Eos # (Auto) 0.2 (0.0-0.4) th/mm3 Baso # (Auto) 0.0 (0.0-0.2) th/mm3 WBC Differential . Differential Comment . PT 11.5 (9.8-11.6) sec INR 1.1 Ratio APTT 26.2 (24.3-30.1) sec Sodium (136-145) meq/L Potassium (3.5-5.1) meq/L Chloride (98-107) meq/L Carbon Dioxide (21.0-32.0) meq/L Anion Gap (5-15) meq/L BUN (7-18) mg/dL Creatinine (0.60-1.30) mg/dL Estimated GFR (>89) mL/min Random Glucose (74-106) mg/dL Lactic Acid (0.4-2.0) mmol/L Calcium (8.5-10.1) mg/dL Magnesium (1.5-2.5) mg/dL Total Bilirubin (0.2-1.0) mg/dL AST (15-37) U/L ALT (12-78) U/L Alkaline Phosphatase (45-117) U/L Total Creatine Kinase (39-308) U/L Troponin I (0.02-0.05) ng/mL B-Natriuretic Peptide (0-100) pg/mL Total Protein (6.4-8.2) g/dL Albumin (3.4-5.0) g/dL Urine Color Yellow (Yellw/Straw) Urine Clarity Slightly cloudy (Clear) Urine pH 6.0 (5.0-8.5) Ur Specific [place] 1.025 (1.002-1.035) Urine Protein Negative (Neg-Trace) mg/dL Urine Glucose (UA) Negative (Negative) mg/dL Urine Ketones Negative (Negative) mg/dL Urine Occult Blood Negative (Negative) Urine Nitrate Negative (Negative) Urine Bilirubin Negative (Negative) Urine Urobilinogen 0.2 (Less than 2) mg/dL Ur Leukocyte Esterase Trace H (Negative) Urine RBC 0-3 (0-3) /hpf Urine WBC 6-8 H (0-5) /hpf Ur Squamous Epith Cells 0-5 (0-5) /hpf Amorphous Sediment Moderate H (None) /hpf Urine Bacteria Few H (None) /hpf Urine Mucus Few H (Occasional) /lpf Micro UA Comment Culture not ind Ur Microscopic Review Microscopic reviewed Urine Culture Comments Culture not ind 01/31/18 01/31/18 01/31/18 Range/Units 21:13 21:13 21:13 CBC w Diff WBC (4.0-11.0) th/mm3 RBC (4.50-5.90) mil/mm3 Hgb (13.0-17.0) gm/dL Hct (39.0-51.0) % MCV (80.0-100.0) fL MCH (27.0-34.0) pg MCHC (32.0-36.0) % RDW (11.6-17.2) % Plt Count (150-450) th/mm3 MPV (7.0-11.0) fL Neut % (Auto) (16.0-70.0) % Lymph % (Auto) (9.0-44.0) % [place] % (Auto) (0.0-8.0) % Eos % (Auto) (0.0-4.0) % Baso % (Auto) (0.0-2.0) % Neut # (Auto) (1.8-7.7) th/mm3 Lymph # (Auto) (1.0-4.8) th/mm3 [place] # (Auto) (0.0-0.9) th/mm3 Eos # (Auto) (0.0-0.4) th/mm3 Baso # (Auto) (0.0-0.2) th/mm3 WBC Differential Differential Comment PT (9.8-11.6) sec INR Ratio APTT (24.3-30.1) sec Sodium 142 (136-145) meq/L Potassium 4.4 (3.5-5.1) meq/L Chloride 111 H (98-107) meq/L Carbon Dioxide 23.1 (21.0-32.0) meq/L Anion Gap 8 (5-15) meq/L BUN 25 H (7-18) mg/dL Creatinine 1.10 (0.60-1.30) mg/dL Estimated GFR 64 L (>89) mL/min Random Glucose 112 H (74-106) mg/dL Lactic Acid 1.1 (0.4-2.0) mmol/L Calcium 8.0 L (8.5-10.1) mg/dL Magnesium 2.2 (1.5-2.5) mg/dL Total Bilirubin 0.7 (0.2-1.0) mg/dL AST 11 L (15-37) U/L ALT 15 (12-78) U/L Alkaline Phosphatase 70 (45-117) U/L Total Creatine Kinase 95 (39-308) U/L Troponin I Less than 0.02 L (0.02-0.05) ng/mL B-Natriuretic Peptide 595 H (0-100) pg/mL Total Protein 6.2 L (6.4-8.2) g/dL Albumin 3.5 (3.4-5.0) g/dL Urine Color (Yellw/Straw) Urine Clarity (Clear) Urine pH (5.0-8.5) Ur Specific [place] (1.002-1.035) Urine Protein (Neg-Trace) mg/dL Urine Glucose (UA) (Negative) mg/dL Urine Ketones (Negative) mg/dL Urine Occult Blood (Negative) Urine Nitrate (Negative) Urine Bilirubin (Negative) Urine Urobilinogen (Less than 2) mg/dL Ur Leukocyte Esterase (Negative) Urine RBC (0-3) /hpf Urine WBC (0-5) /hpf Ur Squamous Epith Cells (0-5) /hpf Amorphous Sediment (None) /hpf Urine Bacteria (None) /hpf Urine Mucus (Occasional) /lpf Micro UA Comment Ur Microscopic Review Urine Culture Comments Imaging Data Radiologist's impression: Chest X-Ray 01/31/18 20:59 CONCLUSION: 1. Cardiomegaly with interstitial prominence and small bilateral pleural effusions suggesting some degree of vascular congestion/failure. 2. Bibasilar atelectatic changes. 3. Findings of prior CABG. ECG Data EKG Prior to Arrival: No Prior ECG tracings: not available for review Interpretation: EKG: Sinus rhythm rate 73 left axis deviation with intraventricular conduction delay no acute ST elevation or injury pattern change noted Discharge Plan Discharge Disposition Patient Disposition: 30 Still Patient Discharge Condition Condition: Stable Discharge Details Diagnosis: CHF (congestive heart failure), COPD (chronic obstructive pulmonary disease) Physicians Team ED Provider: Dipika Melton Primary Care Provider: Alexis Young Attending Provider: Marsha Gonzalez Status ED Status: Admitted Patient
[2018-01-31] MEDS ORDERED: Ketorolac Inj 30 MG/ML (IVP) Vial IV.PUSH ONE (22:32)
[2018-01-31] MEDS ORDERED: Acetaminophen 325 MG Tablet PO PRN (22:44)
[2018-01-31] MEDS ORDERED: Bisacodyl 10 MG Supp RECTAL PRN (22:44)
[2018-01-31] MEDS: MethylPREDNISolone Sod Succinate Inj 40 MG/ML Vial IV.PUSH SCH (23:23)
[2018-02-01] MEDS ORDERED: Ketorolac Inj 30 MG/ML (IVP) Vial IV.PUSH ONE (03:09)
[2018-02-01 04:52] LABS: Chloride 111 meq/L (98-107); Potassium 4.5 meq/L (3.5-5.1); Sodium 141 meq/L (136-145)
[2018-02-01 04:55] LABS: Albumin 3.4 g/dL (3.4-5.0); Calcium 7.9 mg/dL (8.5-10.1)
[2018-02-01 04:56] LABS: Anion Gap 7 meq/L (5-15); Blood Urea Nitrogen 26 mg/dL (7-18); Glucose,Random 154 mg/dL (74-106)
[2018-02-01 04:59] LABS: Alanine Aminotransferase 15 U/L (12-78); Aspartate Aminotransferase 12 U/L (15-37); Glomerular Filtration Rate 58 mL/min (>89)
[2018-02-01 05:01] LABS: Total Protein 6.1 g/dL (6.4-8.2)
[2018-02-01 05:02] LABS: Alkaline Phosphatase 73 U/L (45-117)
[2018-02-01] MEDS: MethylPREDNISolone Sod Succinate Inj 40 MG/ML Vial IV.PUSH SCH (05:08)
--- NOTE | 2018-02-01 10:09 | P.HPFP ---
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 He does not wear oxygen at home. He presents with a several day history of increasing shortness of breath. The denies increasing pedal edema. His PCP placed him on Lasix however he continued to be short of breath. He reluctantly reluctantly came to the hospital based on his 's advice. Chest x-ray did show mild interstitial edema. He was given Lasix. He states he feels no better today. Patient states he is DO NOT RESUSCITATE and has a living will which I reviewed and stated as much. Patient's would like palliative care consult. Patient would absolutely refuse [facility] facility. knows that he is declining and narrowing end of his life. They do not want aggressive treatment. He does have repeated falls and has a bruise on his right flank which is painful. PMH: COPD CHF - 2d echo LVEF 20%, global left ventricular dyfunction, normal pulm pressures CAD DM 2 Chronic pedal edema - says it has come and goes. 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 This includes certification that hospital inpatient services are reasonable and necessary and in the case of services not specified as inpatient-only under 42 CFR 419.22(n), that they are appropriately provided as inpatient services in accordance to with the 2-midnight benchmark under 43 CFR 412.3(e) Estimated Total Length of Stay (Days): 3 Plans for Post Hospital Care: Not yet determined Review of Systems All other systems reviewed negative except as stated in HPI PMFSH - History History Provided By: Patient, Significant Other, Medical Record - Medical History Medical History: Medical History (Last Reviewed 02/01/18 @ 08:04 by Yaya Daugherty) Enlarged prostate History of CHF (congestive heart failure) History of COPD History of CVA (cerebrovascular accident) History of hypertension History of myocardial infarction - Surgical History Surgical History: Surgical History (Last Reviewed 02/01/18 @ 08:04 by Yaya Daugherty) History of angioplasty Hx of heart bypass surgery - Social History I have reviewed the patient's Social History: Yes - Tobacco History Second Hand Smoke Exposure: No Tobacco Use In Past 30 Days: Yes Smoking Status: Current every day smoker Tobacco Type: Cigarettes - Alcohol History How Often Do You Have a Drink Containing Alcohol: Never - Substance Use History Substance History: No History of Abuse - Travel History Recent Travel in the [place] Within the Last 8 Weeks: No Recent Travel Out of the Country Within the Last 8 Weeks: No - Immunization History Tetanus Immunization: >5 Years Hx Influenza Vaccine This Season: Yes Medications and Allergies Active Medications: Active Medications Acetaminophen (Tylenol) 650 mg PO Q4H PRN PRN Reason: Temp > 100.4 Al Hydroxide/Mg Hydroxide (Milk Of Magnesia Liq) 30 ml PO Q12H PRN PRN Reason: Mild Constipation Albuterol (Duoneb Neb ([facility])) 1 ampul NEB Q6HR WHILE AWAKE NEB [facility] Last Admin: 02/01/18 08:09 Dose: 1 ampul Bisacodyl (Dulcolax Supp) 10 mg RECTAL DAILY PRN PRN Reason: SEVERE CONSITIPATION Carvedilol (Coreg) 12.5 mg PO DAILY [facility] Clopidogrel Bisulfate (Plavix) 75 mg PO DAILY [facility] Furosemide (Lasix Inj) 20 mg IV.PUSH BID@2300,1100 [facility] Gabapentin (Neurontin) 300 mg PO DAILY [facility] Lactulose (Lactulose Liq) 30 ml PO DAILY PRN PRN Reason: SEVERE CONSITIPATION Lisinopril (Prinivil) 5 mg PO DAILY [facility] Methylprednisolone Sodium Succinate (Solumedrol Inj) 40 mg IV.PUSH Q8HR [facility] Last Admin: 02/01/18 05:08 Dose: 40 mg Ondansetron HCl (Zofran Inj) 4 mg IV.PUSH Q6H PRN PRN Reason: NAUSEA OR VOMITING Potassium Chloride (Klor-Con 10) 10 meq PO BID [facility] Pravastatin Sodium (Pravachol) 80 mg PO HS [facility] Last Admin: 01/31/18 23:29 Dose: 80 mg Senna/Docusate Sodium (Zenaida-Colace) 1 tab PO BID [facility] Sennosides (Senokot) 17.2 mg PO Q12H PRN PRN Reason: Moderate Constipation Tamsulosin HCl (Flomax) 0.4 mg PO DAILY [facility] Allergies Allergy/AdvReac Type Severity Reaction Status Date / Time No Known Allergies Allergy Verified 01/31/18 21:25 Home Medications Medication Instructions Recorded Confirmed Type Ventolin HFA 01/31/18 History Vitamin D3 01/31/18 History carvedilol 12.5 mg PO DAILY 01/31/18 01/31/18 History clopidogrel 75 mg PO DAILY 01/31/18 01/31/18 History diclofenac sodium [Voltaren] 01/31/18 History furosemide 20 mg PO DAILY 01/31/18 01/31/18 History gabapentin 300 mg PO DAILY 01/31/18 01/31/18 History lisinopril 5 mg PO DAILY 01/31/18 01/31/18 History potassium chloride [K-Tab] 10 meq PO BID 01/31/18 01/31/18 History simvastatin 40 mg PO QPM 01/31/18 01/31/18 History tamsulosin 0.4 mg PO DAILY 01/31/18 01/31/18 History umeclidinium-vilanterol [Anoro 01/31/18 History Ellipta] Exam Vital signs: Vital Signs 01/31/18 20:07 01/31/18 20:43 01/31/18 21:13 Temperature 97.6 F 97.6 F Pulse Rate 75 75 75 Respiratory Rate 24 24 22 Blood Pressure 103/57 L 96/55 L 103/74 Pulse Oximetry 97 99 92 L 01/31/18 21:15 01/31/18 21:44 01/31/18 22:46 Temperature Pulse Rate 75 73 72 Respiratory Rate 24 20 22 Blood Pressure 102/70 99/59 L Pulse Oximetry 98 95 97 01/31/18 23:00 01/31/18 23:30 01/31/18 23:32 Temperature Pulse Rate 69 Respiratory Rate 18 Blood Pressure 108/60 Pulse Oximetry 97 97 02/01/18 01:32 02/01/18 04:23 02/01/18 06:40 Temperature Pulse Rate 62 71 75 Respiratory Rate 17 17 17 Blood Pressure 100/62 116/67 111/67 Pulse Oximetry 95 95 95 02/01/18 08:00 02/01/18 08:11 02/01/18 08:12 Temperature Pulse Rate 85 Respiratory Rate 20 Blood Pressure Pulse Oximetry 95 97 02/01/18 08:17 02/01/18 09:25 02/01/18 09:40 Temperature Pulse Rate 82 78 65 Respiratory Rate 16 16 Blood Pressure 112/67 118/65 Pulse Oximetry 95 95 Intake & Output 01/31/18 02/01/18 02/01/18 18:59 06:59 18:59 Output Total 450 / 450 Balance -450 / -450 Weight 72.5 kg 74.5 kg Output: Urine 450 / 450 Other: Weight On Admission 74.5 kg Narrative: GENERAL: This is a elderly male in no significant respiratory distress wearing nasal cannula oxygen. CARDIOVASCULAR: Regular rate and rhythm without murmurs, gallops, or rubs. RESPIRATORY: Breathing is nonlabored but he has diffuse bilateral expiratory wheezing. No rales. GASTROINTESTINAL: Abdomen soft, non-tender, nondistended. Normal active bowel sounds MUSCULOSKELETAL: He has no peripheral edema. NEURO: Alert & Oriented x4 to person, place, time, situation. Moves all ext x4 Skin: He does have a bruise on his right flank. No open skin wounds. Results - Labs Result diagrams: 01/31/18 21:13 02/01/18 04:41 Abnormal lab results 01/31/18 01/31/18 01/31/18 Range/Units 21:12 21:13 21:13 RBC 4.02 L (4.50-5.90) mil/mm3 Plt Count 123 L (150-450) th/mm3 Neut % (Auto) 77.8 H (16.0-70.0) % Lymph # (Auto) 0.9 L (1.0-4.8) th/mm3 Chloride 111 H (98-107) meq/L BUN 25 H (7-18) mg/dL Estimated GFR 64 L (>89) mL/min Random Glucose 112 H (74-106) mg/dL Calcium 8.0 L (8.5-10.1) mg/dL AST 11 L (15-37) U/L Troponin I Less than 0.02 L (0.02-0.05) ng/mL B-Natriuretic Peptide (0-100) pg/mL Total Protein 6.2 L (6.4-8.2) g/dL Ur Leukocyte Esterase Trace H (Negative) Urine WBC 6-8 H (0-5) /hpf Amorphous Sediment Moderate H (None) /hpf Urine Bacteria Few H (None) /hpf Urine Mucus Few H (Occasional) /lpf 01/31/18 01/31/18 02/01/18 Range/Units 21:13 23:05 04:41 RBC (4.50-5.90) mil/mm3 Plt Count (150-450) th/mm3 Neut % (Auto) (16.0-70.0) % Lymph # (Auto) (1.0-4.8) th/mm3 Chloride (98-107) meq/L BUN (7-18) mg/dL Estimated GFR (>89) mL/min Random Glucose (74-106) mg/dL Calcium (8.5-10.1) mg/dL AST (15-37) U/L Troponin I Less than 0.02 L Less than 0.02 L (0.02-0.05) ng/mL B-Natriuretic Peptide 595 H (0-100) pg/mL Total Protein (6.4-8.2) g/dL Ur Leukocyte Esterase (Negative) Urine WBC (0-5) /hpf Amorphous Sediment (None) /hpf Urine Bacteria (None) /hpf Urine Mucus (Occasional) /lpf 02/01/18 Range/Units 04:41 RBC (4.50-5.90) mil/mm3 Plt Count (150-450) th/mm3 Neut % (Auto) (16.0-70.0) % Lymph # (Auto) (1.0-4.8) th/mm3 Chloride 111 H (98-107) meq/L BUN 26 H (7-18) mg/dL Estimated GFR 58 L (>89) mL/min Random Glucose 154 H (74-106) mg/dL Calcium 7.9 L (8.5-10.1) mg/dL AST 12 L (15-37) U/L Troponin I (0.02-0.05) ng/mL B-Natriuretic Peptide (0-100) pg/mL Total Protein 6.1 L (6.4-8.2) g/dL Ur Leukocyte Esterase (Negative) Urine WBC (0-5) /hpf Amorphous Sediment (None) /hpf Urine Bacteria (None) /hpf Urine Mucus (Occasional) /lpf Short CBC 01/31/18 Range/Units 21:13 WBC 7.3 (4.0-11.0) th/mm3 Hgb 13.4 (13.0-17.0) gm/dL Hct 39.0 (39.0-51.0) % Plt Count 123 L (150-450) th/mm3 BMP 01/31/18 02/01/18 21:13 04:41 Sodium 142 141 Potassium 4.4 4.5 Chloride 111 H 111 H Carbon Dioxide 23.1 23.0 BUN 25 H 26 H Creatinine 1.10 1.20 Calcium 8.0 L 7.9 L Cardiac Enzymes 01/31/18 01/31/18 02/01/18 Range/Units 21:13 23:05 04:41 Total Creatine Kinase 95 (39-308) U/L Troponin I Less than 0.02 L Less than 0.02 L Less than 0.02 L (0.02-0.05) ng/mL Liver Function 01/31/18 02/01/18 Range/Units 21:13 04:41 Total Bilirubin 0.7 0.8 (0.2-1.0) mg/dL AST 11 L 12 L (15-37) U/L ALT 15 15 (12-78) U/L Alkaline Phosphatase 70 73 (45-117) U/L Albumin 3.5 3.4 (3.4-5.0) g/dL Urine 01/31/18 Range/Units 21:12 Urine Color Yellow (Yellw/Straw) Urine Clarity Slightly cloudy (Clear) Urine pH 6.0 (5.0-8.5) Ur Specific [place] 1.025 (1.002-1.035) Urine Protein Negative (Neg-Trace) mg/dL Urine Glucose (UA) Negative (Negative) mg/dL - Imaging Impressions Chest X-Ray 01/31/18 20:59 CONCLUSION: 1. Cardiomegaly with interstitial prominence and small bilateral pleural effusions suggesting some degree of vascular congestion/failure. 2. Bibasilar atelectatic changes. 3. Findings of prior CABG. Caprini VTE Risk Assessment Caprini VTE Risk Assessment: Moderate/High Risk (score >= 2) Caprini Risk Assessment Model: Point Value = 1 Point Value = 2 Point Value = 3 Point Value = 5 Age 41-60 Minor surgery BMI > 25 kg/m2 Swollen legs Varicose veins or History of unexplained or recurrent spontaneous Oral contraceptives or hormone replacement Sepsis (< 1 month) Serious lung disease, including pneumonia (< 1 month) Abnormal pulmonary function Acute myocardial infarction Congestive heart failure (< 1 month) History of inflammatory bowel disease Medical patient at bed rest Age 61-74 Arthroscopic surgery Major open surgery (> 45 min) Laparoscopic surgery (> 45 min) Malignancy Confined to bed (> 72 hours) Immobilizing plaster cast Central venous access Age >= 75 History of VTE Family history of VTE Factor V Leiden Prothrombin [id number] Lupus anticoagulant Anticardiolipin antibodies Elevated serum homocysteine Heparin-induced thrombocytopenia Other congenital or acquired thrombophilia Stroke (< 1 month) Elective arthroplasty Hip, pelvis, or leg fracture Acute spinal cord injury (< 1 month) Prophylaxis Regimen: Total Risk Factor Score Risk Level Prophylaxis Regimen 0-1 Low Early ambulation 2 Moderate Order ONE of the following: *Sequential Compression Device (SCD) *Heparin 5000 units SQ BID 3-4 Higher Order ONE of the following medications: *Heparin 5000 units SQ TID *Enoxaparin/Lovenox 40 mg SQ daily (WT < 150 kg, CrCl > 30 mL/min) *Enoxaparin/Lovenox 30 mg SQ daily (WT < 150 kg, CrCl > 10-29 mL/min) *Enoxaparin/Lovenox 30 mg SQ BID (WT < 150 kg, CrCl > 30 mL/min) AND/OR *Sequential Compression Device (SCD) 5 or more Highest Order ONE of the following medications: *Heparin 5000 units SQ TID (Preferred with Epidurals) *Enoxaparin/Lovenox 40 mg SQ daily (WT < 150 kg, CrCl > 30 mL/min) *Enoxaparin/Lovenox 30 mg SQ daily (WT < 150 kg, CrCl > 10-29 mL/min) *Enoxaparin/Lovenox 30 mg SQ BID (WT < 150 kg, CrCl > 30 mL/min) AND *Sequential Compression Device (SCD) Assessment and Plan - Assessment and Plan 83-year-old male with end-stage CHF and COPD who is admitted to the hospital for increasing shortness of breath. He did have some interstitial edema on his chest x-ray but was treated with Lasix. By physical exam I feel that his symptoms are more consistent with COPD. I will increase his Solu- Medrol. Discussed consulting pulmonology and cardiology. He does have remote history of CABG and infarct so likely has ischemic cardiomyopathy. After discussion with his and the patient however the patient is DNR and they would like palliative consult. We will continue with aggressive medical treatment until palliative care has been able to see him. COPD CHF - 2d echo LVEF 20%, global left ventricular dyfunction, normal pulm pressures CAD DM 2 -recent A1c was in the 6 level. Chronic pedal edema - says it has come and goes. 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 H&P: Quality - VTE Deep Vein Thrombosis/Pulmonary Embolism Present on Admission: No
[2018-02-01] MEDS: Lisinopril 5 MG Tablet PO SCH (10:28)
[2018-02-01] MEDS: Gabapentin 100 MG Capsule PO SCH (10:28)
[2018-02-01] MEDS: Carvedilol 12.5 MG Tablet PO SCH (10:29)
[2018-02-01] MEDS: Senna/Docusate Sodium 8.6/50 MG Tablet PO SCH ×2 (10:29→20:12)
--- NOTE | 2018-02-01 11:24 | ECHRPT ---
Indication: Cardiomyopathy CONCLUSIONS Severely dilated left ventricle. Wall thickness is normal. There is mild hypokinesis of the basal posterior wall, akinesis of the mid to basal inferior wall, and severe hypokinesis of all other segments. The left ventricular systolic function is severely reduced with an estimated ejection fraction of 15 %. The left atrial size is moderately dilated. The right atrial size is moderately dilated. Moderate mitral valve regurgitation. Trileaflet aortic valve. Minimal leaflet sclerosis. There is trace tricuspid valve regurgitation. The estimated pulmonary arterial pressure is 40 mmHg. BP: / HR: Rhythm: MEASUREMENTS (Male / Female) Normal Values Technical Quality:Good 2D ECHO LV Diastolic Diameter PLAX 6.5 cm 4.2 - 5.9 / 3.9 - 5.3 cm LV Systolic Diameter PLAX 6.0 cm IVS Diastolic Thickness 0.9 cm 0.6 - 1.0 / 0.6 - 0.9 cm LVPW Diastolic Thickness 0.9 cm 0.6 - 1.0 / 0.6 - 0.9 cm LV Relative Wall Thickness 0.3 RV Internal Dim ED PLAX 2.5 cm LVOT Diameter 2.2 cm Aortic Root Diameter 3.0 cm LA Systolic Diameter LX 4.9 cm 3.0 - 4.0 / 2.7 - 3.8 cm M-MODE AV Cusp Separation MM 1.9 cm DOPPLER AV Peak Velocity 113.0 cm/s AV Peak Gradient 5.1 mmHg LVOT Peak Velocity 72.1 cm/s LVOT Peak Gradient 2.1 mmHg AV Area Cont Eq pk 2.4 cm Mitral E Point Velocity 123.0 cm/s Mitral A Point Velocity 72.6 cm/s Mitral E to A Ratio 1.7 LV E' Lateral Velocity 9.1 cm/s Mitral E to LV E' Lateral Ratio 13.6 LV E' Septal Velocity 3.8 cm/s Mitral E to LV E' Septal Ratio 32.4 TR Peak Velocity 274.0 cm/s TR Peak Gradient 30.0 mmHg Right Atrial Pressure 10.0 mmHg Pulmonary Artery Systolic Pressu 40.0 mmHg Right Ventricular Systolic Press 40.0 mmHg PV Peak Velocity 125.0 cm/s PV Peak Gradient 6.3 mmHg FINDINGS LEFT VENTRICLE Severely dilated left ventricle. Wall thickness is normal. There is mild hypokinesis of the basal posterior wall, akinesis of the mid to basal inferior wall, and severe hypokinesis of all other segments. The left ventricular systolic function is severely reduced with an estimated ejection fraction of 15 %. RIGHT VENTRICLE Normal right ventricular size and systolic function. LEFT ATRIUM The left atrial size is moderately dilated. RIGHT ATRIUM The right atrial size is moderately dilated. ATRIAL SEPTUM Normal atrial septal thickness without atrial level shunting by limited color doppler interrogation. AORTA The aortic root and proximal ascending aorta are normal in size on limited imaging. MITRAL VALVE Moderate mitral valve regurgitation. AORTIC VALVE Trileaflet aortic valve. Minimal leaflet sclerosis. TRICUSPID VALVE There is trace tricuspid valve regurgitation. The estimated pulmonary arterial pressure is 40 mmHg. PULMONARY VALVE No pulmonary valve regurgitation or stenosis. VESSELS The inferior vena cava is normal in size. PERICARDIUM No pericardial effusion. Yvon Dill MD (Electronically Signed) Final Date:01 February 2018 11:23
[2018-02-01] MEDS: MethylPREDNISolone Sod Succinate Inj 125 MG/2 ML Vial IV.PUSH SCH ×2 (11:25→17:06)
[2018-02-01] MEDS: Azithromycin 250 MG Tablet PO SCH (11:26)
--- NOTE | 2018-02-01 13:31 | P.CONPAL ---
Consult Service: Palliative Care Requesting Physician: Marsha Gonzalez Reason for Consult: a. To assist with evaluation and management of symptoms including: Dyspnea, confusion b. To assist medical decision maker(s) with: better understanding of current medical conditions; weighing benefits/burdens of medical treatment options; making medical treatment decisions. Primary Care Provider: Alexis Young DO History of Present Illness History of Present Illness: This is an 83-year-old male brought to the emergency room by his spouse with a complaint of intermittent but progressively worsening dyspnea since Wednesday. He has a history of congestive heart failure, COPD, CAD/ID and previous CVA. He has a long history of smoking and continues to smoke about a pack a day. The dyspnea worsens during exertion, moderate severity, present for the prior 3 days, intermittent, progressively worsening exacerbated by exertion, movement and coughing and associated with chest pressure, cough and congestion. 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 Diagnostic findings on admission * Chest x-ray shows cardiomegaly with interstitial prominence and small bilateral pleural effusions, suggesting some degree of vascular congestion. Bibasilar atelectatic changes, prior CABG. * 2D echocardiogram shows severely dilated left ventricle, mild hypokinesis of the basal posterior wall, akinesis of the mid to basal inferior wall and severe hypokinesis of all other segments. LVEF 15%, left atrium moderately dilated, right atrium moderately dilated, moderate mitral regurgitation, trileaflet aortic valve, trace tricuspid regurgitation, pulmonary artery pressure 40 mmHg. * WBC 7.3, hemoglobin 13.4, hematocrit 39.0, platelets 123, sodium 141, potassium 4.5, BUN 26, creatinine 1.20, calcium 7.9, total bilirubin 0.8, AST 12 , ALT 15, alk phos 73, troponin 0 0.02 x 3 draws. B natruretic peptide 595. Urinalysis shows a negative urinalysis with no culture indicated. This is an elderly male lying in bed reading a book in no acute distress. He is mildly confused and has difficulty following the conversation. He states his had stepped out briefly but that I should talk to her. He had previously stated he wanted to go home "and ". Palliative care has been consulted for further evaluation and management. Review of the chart shows a clearly defined living will and healthcare surrogate indicating the patient's wish to be a DO NOT RESUSCITATE with no aggressive measures. Past medical history Prostatic hypertrophy Congestive heart failure COPD Right MCA territory CVA Hypertension CAD/ID Diabetes Hyperlipidemia Degenerative disc disease Left carotid artery stenosis 50% Surgical history Angioplasty CABG Laminectomy Right knee arthroscopic surgery Tonsillectomy Social history Smokes approximately 1 pack/day for most of his life. No history of alcohol use or illicit substance abuse. Family history Father of congestive heart failure Function/Cognitive Trajectory: His states that his quality of life consists of sitting up in a chair, watching TV and going out to the garage to smoke. She states that he ambulates with a walker and is independent as long as she sets up food for him through the day. She states he is mentally declining and somewhat confused but is generally able to stay home alone while she works during the day. . Review of Systems Patient is mildly confused and ROS may not be reliable. A 12 part ROS taken as best as possible from medical record and available family. Respiratory: Reports shortness of breath Neurologic: Reports confusion PMFSH - History History Provided By: Patient, Significant Other, Medical Record - Medical History Medical History: Medical History (Last Reviewed 02/01/18 @ 08:04 by Yaya Daugherty) Enlarged prostate History of CHF (congestive heart failure) History of COPD History of CVA (cerebrovascular accident) History of hypertension History of myocardial infarction - Surgical History Surgical History: Surgical History (Last Reviewed 02/01/18 @ 08:04 by Yaya Daugherty) History of angioplasty Hx of heart bypass surgery - Tobacco History Second Hand Smoke Exposure: No Tobacco Use In Past 30 Days: Yes Smoking Status: Current every day smoker Tobacco Type: Cigarettes - Alcohol History How Often Do You Have a Drink Containing Alcohol: Never - Substance Use History Substance History: No History of Abuse - Travel History Recent Travel in the [place] Within the Last 8 Weeks: No Recent Travel Out of the Country Within the Last 8 Weeks: No - Immunization History Tetanus Immunization: >5 Years Hx Influenza Vaccine This Season: Yes Medications and Allergies Active Medications: Active Medications Acetaminophen (Tylenol) 650 mg PO Q4H PRN PRN Reason: Temp > 100.4 Last Admin: 02/01/18 10:27 Dose: 650 mg Al Hydroxide/Mg Hydroxide (Milk Of Magndianne Liq) 30 ml PO Q12H PRN PRN Reason: Mild Constipation Albuterol (Duoneb Neb (Kaiden)) 1 ampul NEB Q6HR WHILE AWAKE NEB [facility] Last Admin: 02/01/18 08:09 Dose: 1 ampul Azithromycin (Zithromax) 500 mg PO DAILY [facility] Last Admin: 02/01/18 11:26 Dose: 500 mg Bisacodyl (Dulcolax Supp) 10 mg RECTAL DAILY PRN PRN Reason: SEVERE CONSITIPATION Carvedilol (Coreg) 12.5 mg PO DAILY [facility] Last Admin: 02/01/18 10:29 Dose: 12.5 mg Clopidogrel Bisulfate (Plavix) 75 mg PO DAILY [facility] Last Admin: 02/01/18 10:29 Dose: 75 mg Furosemide (Lasix Inj) 20 mg IV.PUSH BID@2300,1100 [facility] Last Admin: 02/01/18 11:25 Dose: 20 mg Gabapentin (Neurontin) 300 mg PO DAILY [facility] Last Admin: 02/01/18 10:28 Dose: 300 mg Lactulose (Lactulose Liq) 30 ml PO DAILY PRN PRN Reason: SEVERE CONSITIPATION Lisinopril (Prinivil) 5 mg PO DAILY [facility] Last Admin: 02/01/18 10:28 Dose: 5 mg Methylprednisolone Sodium Succinate (Solumedrol Inj) 60 mg IV.PUSH Q6HR [facility] Last Admin: 02/01/18 11:25 Dose: 60 mg Ondansetron HCl (Zofran Inj) 4 mg IV.PUSH Q6H PRN PRN Reason: NAUSEA OR VOMITING Oxycodone/Acetaminophen (Percocet 5/325 Mg) 1 tab PO Q6H PRN PRN Reason: pain from fall Potassium Chloride (Klor-Con 10) 10 meq PO BID [facility] Last Admin: 02/01/18 10:28 Dose: 10 meq Pravastatin Sodium (Pravachol) 80 mg PO HS [facility] Last Admin: 01/31/18 23:29 Dose: 80 mg Senna/Docusate Sodium (Zenaida-Colace) 1 tab PO BID [facility] Last Admin: 02/01/18 10:29 Dose: 1 tab Sennosides (Senokot) 17.2 mg PO Q12H PRN PRN Reason: Moderate Constipation Tamsulosin HCl (Flomax) 0.4 mg PO DAILY [facility] Last Admin: 02/01/18 10:29 Dose: 0.4 mg Allergies Allergy/AdvReac Type Severity Reaction Status Date / Time No Known Allergies Allergy Verified 01/31/18 21:25 Home Medications Medication Instructions Recorded Confirmed Type Ventolin HFA 01/31/18 History Vitamin D3 01/31/18 History carvedilol 12.5 mg PO DAILY 01/31/18 01/31/18 History clopidogrel 75 mg PO DAILY 01/31/18 01/31/18 History diclofenac sodium [Voltaren] 01/31/18 History furosemide 20 mg PO DAILY 01/31/18 01/31/18 History gabapentin 300 mg PO DAILY 01/31/18 01/31/18 History lisinopril 5 mg PO DAILY 01/31/18 01/31/18 History potassium chloride [K-Tab] 10 meq PO BID 01/31/18 01/31/18 History simvastatin 40 mg PO QPM 01/31/18 01/31/18 History tamsulosin 0.4 mg PO DAILY 01/31/18 01/31/18 History umeclidinium-vilanterol [Anoro 01/31/18 History Ellipta] Advance Directives Living Will: Yes Healthcare Surrogate: Yes Health Care Surrogate Name and Number: Laura Proctor , Power of [place]: No Physical Exam Vital Signs: Vital Signs - 24 hr 01/31/18 20:07 01/31/18 20:43 01/31/18 21:13 Temperature 97.6 F 97.6 F Pulse Rate 75 75 75 Respiratory Rate 24 24 22 Blood Pressure 103/57 L 96/55 L 103/74 Pulse Oximetry 97 99 92 L 01/31/18 21:15 01/31/18 21:44 01/31/18 22:46 Temperature Pulse Rate 75 73 72 Respiratory Rate 24 20 22 Blood Pressure 102/70 99/59 L Pulse Oximetry 98 95 97 01/31/18 23:00 01/31/18 23:30 01/31/18 23:32 Temperature Pulse Rate 69 Respiratory Rate 18 Blood Pressure 108/60 Pulse Oximetry 97 97 02/01/18 01:32 02/01/18 04:23 02/01/18 06:40 Temperature Pulse Rate 62 71 75 Respiratory Rate 17 17 17 Blood Pressure 100/62 116/67 111/67 Pulse Oximetry 95 95 95 02/01/18 08:00 02/01/18 08:11 02/01/18 08:12 Temperature Pulse Rate 85 Respiratory Rate 20 Blood Pressure Pulse Oximetry 95 97 02/01/18 08:17 02/01/18 09:25 02/01/18 09:40 Temperature Pulse Rate 82 78 65 Respiratory Rate 16 16 Blood Pressure 112/67 118/65 Pulse Oximetry 95 95 02/01/18 09:52 Temperature Pulse Rate 87 Respiratory Rate Blood Pressure Pulse Oximetry I&O: Intake & Output 01/30/18 01/31/18 02/01/18 02/02/18 06:59 06:59 06:59 06:59 Output Total 450 / 450 100 / 100 Balance -450 / -450 -100 / -100 Weight 159 lb 13.362 oz 164 lb 3.91 oz Physical Exam: CONSTITUTIONAL/GENERAL: This is an adequately nourished patient, in no apparent distress. TUBES/LINES/DRAINS: PIV SKIN: No jaundice, rashes, or lesions. Ecchymoses on upper extremities. No wounds seen anteriorly. Skin temperature appropriate. Not diaphoretic. HEAD: Atraumatic. Normocephalic. EYES: Pupils equal and round and reactive. Extraocular motions intact. No scleral icterus. No injection or drainage. Fundi not examined. ENT: Hearing grossly normal. Nose without bleeding or purulent drainage. Throat without visible erythema, exudates, masses, or lesions. Poor dentition. NECK: Trachea midline. Supple, nontender. No palpable thyroid enlargement or nodularity. CARDIOVASCULAR: Regular rate and rhythm without murmurs, gallops, or rubs. No JVD. Peripheral pulses symmetric. RESPIRATORY/CHEST: Symmetric, unlabored respirations. Clear to auscultation. Breath sounds equal bilaterally. No wheezes, rales, or rhonchi. Dyspneic with speech or movement. GASTROINTESTINAL: Abdomen soft, non-tender, nondistended. No hepato-splenomegaly , or palpable masses. No guarding. Bowel sounds present. GENITOURINARY: Without palpable bladder distension. MUSCULOSKELETAL: Extremities without clubbing or cyanosis, no edema. No joint tenderness or effusion noted. No calf tenderness. No mottling or clubbing. LYMPHATICS: No palpable cervical or supraclavicular adenopathy. NEUROLOGICAL: Awake and alert. Motor and sensory grossly within normal limits. Follows commands. Mildly confused. Moves all extremities. PSYCHIATRIC: No obvious anxiety/depression. no apparent hallucinations or other psychotic thought process. . Diagnostic Tests Laboratory: Laboratory Results - last 72 hr 01/31/18 01/31/18 01/31/18 21:12 21:13 21:13 CBC w Diff Auto diff final WBC 7.3 RBC 4.02 L Hgb 13.4 Hct 39.0 MCV 97.1 MCH 33.3 MCHC 34.3 RDW 13.9 Plt Count 123 L MPV 9.0 Neut % (Auto) 77.8 H Lymph % (Auto) 12.1 Burt % (Auto) 6.7 Eos % (Auto) 3.0 Baso % (Auto) 0.4 Neut # (Auto) 5.7 Lymph # (Auto) 0.9 L Burt # (Auto) 0.5 Eos # (Auto) 0.2 Baso # (Auto) 0.0 WBC Differential . Differential Comment . PT 11.5 INR 1.1 APTT 26.2 Sodium Potassium Chloride Carbon Dioxide Anion Gap BUN Creatinine Estimated GFR Random Glucose Lactic Acid Calcium Magnesium Total Bilirubin AST ALT Alkaline Phosphatase Total Creatine Kinase Troponin I B-Natriuretic Peptide Total Protein Albumin Urine Color Yellow Urine Clarity Slightly cloudy Urine pH 6.0 Ur Specific [place] 1.025 Urine Protein Negative Urine Glucose (UA) Negative Urine Ketones Negative Urine Occult Blood Negative Urine Nitrate Negative Urine Bilirubin Negative Urine Urobilinogen 0.2 Ur Leukocyte Esterase Trace H Urine RBC 0-3 Urine WBC 6-8 H Ur Squamous Epith Cells 0-5 Amorphous Sediment Moderate H Urine Bacteria Few H Urine Mucus Few H Micro UA Comment Culture not ind Ur Microscopic Review Microscopic reviewed Urine Culture Comments Culture not ind 01/31/18 01/31/18 01/31/18 21:13 21:13 21:13 CBC w Diff WBC RBC Hgb Hct MCV MCH MCHC RDW Plt Count MPV Neut % (Auto) Lymph % (Auto) Burt % (Auto) Eos % (Auto) Baso % (Auto) Neut # (Auto) Lymph # (Auto) Burt # (Auto) Eos # (Auto) Baso # (Auto) WBC Differential Differential Comment PT INR APTT Sodium 142 Potassium 4.4 Chloride 111 H Carbon Dioxide 23.1 Anion Gap 8 BUN 25 H Creatinine 1.10 Estimated GFR 64 L Random Glucose 112 H Lactic Acid 1.1 Calcium 8.0 L Magnesium 2.2 Total Bilirubin 0.7 AST 11 L ALT 15 Alkaline Phosphatase 70 Total Creatine Kinase 95 Troponin I Less than 0.02 L B-Natriuretic Peptide 595 H Total Protein 6.2 L Albumin 3.5 Urine Color Urine Clarity Urine pH Ur Specific [place] Urine Protein Urine Glucose (UA) Urine Ketones Urine Occult Blood Urine Nitrate Urine Bilirubin Urine Urobilinogen Ur Leukocyte Esterase Urine RBC Urine WBC Ur Squamous Epith Cells Amorphous Sediment Urine Bacteria Urine Mucus Micro UA Comment Ur Microscopic Review Urine Culture Comments 01/31/18 02/01/18 02/01/18 23:05 04:41 04:41 CBC w Diff WBC RBC Hgb Hct MCV MCH MCHC RDW Plt Count MPV Neut % (Auto) Lymph % (Auto) Burt % (Auto) Eos % (Auto) Baso % (Auto) Neut # (Auto) Lymph # (Auto) Burt # (Auto) Eos # (Auto) Baso # (Auto) WBC Differential Differential Comment PT INR APTT Sodium 141 Potassium 4.5 Chloride 111 H Carbon Dioxide 23.0 Anion Gap 7 BUN 26 H Creatinine 1.20 Estimated GFR 58 L Random Glucose 154 H Lactic Acid Calcium 7.9 L Magnesium Total Bilirubin 0.8 AST 12 L ALT 15 Alkaline Phosphatase 73 Total Creatine Kinase Troponin I Less than 0.02 L Less than 0.02 L B-Natriuretic Peptide Total Protein 6.1 L Albumin 3.4 Urine Color Urine Clarity Urine pH Ur Specific [place] Urine Protein Urine Glucose (UA) Urine Ketones Urine Occult Blood Urine Nitrate Urine Bilirubin Urine Urobilinogen Ur Leukocyte Esterase Urine RBC Urine WBC Ur Squamous Epith Cells Amorphous Sediment Urine Bacteria Urine Mucus Micro UA Comment Ur Microscopic Review Urine Culture Comments Result Diagrams: 01/31/18 21:13 02/01/18 04:41 Microbiology: Microbiology 01/31/18 21:13 Aerobic Blood Culture - Preliminary Blood - Peripheral No growth in 1 day Anaerobic Blood Culture - Preliminary No growth in 1 day 01/31/18 21:08 Aerobic Blood Culture - Preliminary Blood - Peripheral No growth in 1 day Anaerobic Blood Culture - Preliminary No growth in 1 day Imaging: Chest X-Ray 01/31/18 20:59 CONCLUSION: 1. Cardiomegaly with interstitial prominence and small bilateral pleural effusions suggesting some degree of vascular congestion/failure. 2. Bibasilar atelectatic changes. 3. Findings of prior CABG. Patient/Family Conference Present at Family Conference: Spoke with his at bedside who outlined goals consistent with comfort. Reviewed palliative care purpose and focus as well as the below listed items. She states that is her wish to get him home as soon as possible as that is his wish. He flatly refuses any mcc admission or rehab. states he is happy with his quality of life as it is and wishes simply to live at home and smoke when he wishes. She is aware of his very poor condition and wishes his remaining time to be as comfortable and dignified as possible. Discussed hospice versus home health and she states that she believes that hospice will serve them the best to manage his quality of life. Hospice consultation was arranged for 4-5 PM today with hopes to get patient discharged home later today. . Family Conference Location: Bedside Issues Discussed: * Palliative care role, purpose, approach * Additional medical, psychosocial, and spiritual history * Patients general health, functional status, and cognitive changes in the months leading up to the current hospitalization * Patient/family understanding of the current medical problems * Patient/family understanding of prognosis * Patients goals of care as best understood from advance directives and/or conversations and/or values * Current medical treatment options and benefits/burdens of those options * Likely scenarios comparing ongoing aggressive care with a transition to comfort measures only * Questions answered to the best of my ability * Palliative care contact information provided Assessment and Plan Pertinent Non-Medical Issues: Psychosocial: 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 He is . 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 Legal: Living will and healthcare surrogate on the chart. Ethical issues impacting care: None noted. . Important Contacts: : Laura Proctor , . Prognosis: His prognosis is poor. He has a long smoking history with severe COPD, cardiomegaly, history of coronary artery disease status post ID and CABG, now with ejection fraction 15%. He continues to smoke and has a sedentary life of bed to chair. He is at significant risk for continued complications, decline and readmissions. He is hospice appropriate and the family is accepting of the hospice goals of care. Consult pending. . Code Status: No Code DNR Plan: PLAN: Legal decision maker: The patient has some confusion and does not appear to be completely capacitated for decision-making and it is uncertain if he will ever be fully capacitated. He defers decisions to his who is his healthcare surrogate as well as healthcare proxy by [place] statutes. Goals: Comfort oriented. CODE STATUS: DO NOT RESUSCITATE SYMPTOMS: * Confusion: He is oriented to self and place but has poor insight into his disease process and health status. His states that this is his baseline and that he is intermittently confused. This is likely related to poor cardiac output, borderline oxygenation, prior CVA and COPD progression. * Dyspnea: Multifactorial to include congestive heart failure, COPD, continued smoking. He is currently on oxygen and comfortable without orthopnea. His dyspnea increases with any exertion or activity. He is sedentary at home and will likely require oxygen. Hospice has been consulted at the family's request. SUMMARY This is an 83-year-old male with a history of COPD, prior CVA, continued smoking , coronary artery disease with ejection fraction of 15%. He is chronically dyspneic and appears to be approaching end-stage disease. He wishes no aggressive interventions and refuses any form of rehabilitation or mcc placement. He wishes to go home and live his life out as comfortably as possible. Hospice consultation pending. Patient wishes to go home today if at all possible. Palliative care will continue to follow the patient during hospital course as condition evolves, to assist patient/decision-maker with understanding of their medical conditions, weighing benefits/burdens of treatment options, for clarification of goals of treatment. Additionally will assist with any symptoms of palliative concern. . Appreciation Thank you for the opportunity to participate in the care of Ivan Allison. Attestation Attestation: To help prompt me to consider important information that might be impacting today's encounter and assessment, information from prior notes written by myself or my colleagues may have been "brought forward" into today's note. My signature on this note, however, is an attestation that I personally performed the exam, history, and/or decision-making noted today, and, unless otherwise indicated, the interactions with patient, family, and staff as well as the review of records all occurred today. I also attest that the listed assessment and stated plan reflect my best clinical judgment today based on the combination of historical information, prior notes, and today's exam/ interactions. When time spent is documented, it refers only to time spent today by the signer, or if indicated, combined time spent today by collaborating physician/nurse practitioner. .
[2018-02-01 20:50] VITALS: RESP 18
[2018-02-02] MEDS ORDERED: Temazepam 15 MG Capsule PO SCH (00:15)
[2018-02-02] MEDS: MethylPREDNISolone Sod Succinate Inj 125 MG/2 ML Vial IV.PUSH SCH ×3 (00:18→11:27)
[2018-02-02 06:53] LABS: Potassium 4.4 meq/L (3.5-5.1)
[2018-02-02 06:58] LABS: Calcium 8.2 mg/dL (8.5-10.1); Carbon Dioxide 21.2 meq/L (21.0-32.0)
[2018-02-02 07:29] VITALS: O2SAT 100
[2018-02-02] MEDS: Azithromycin 250 MG Tablet PO SCH (08:13)
[2018-02-02] MEDS: Carvedilol 12.5 MG Tablet PO SCH (08:13)
[2018-02-02] MEDS: Lisinopril 5 MG Tablet PO SCH (08:13)
[2018-02-02] MEDS: Gabapentin 100 MG Capsule PO SCH (08:14)
[2018-02-02] MEDS: Senna/Docusate Sodium 8.6/50 MG Tablet PO SCH (08:15)
[2018-02-02 08:26] VITALS: BP 111/57; PULSE 79; TEMP 95.3
--- NOTE | 2018-02-02 11:47 | P.DS ---
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 He does not wear oxygen at home. He presents with a several day history of increasing shortness of breath. The denies increasing pedal edema. His PCP placed him on Lasix however he continued to be short of breath. He reluctantly reluctantly came to the hospital based on his 's advice. Chest x-ray did show mild interstitial edema. He was given Lasix. He states he feels no better today. Patient states he is DO NOT RESUSCITATE and has a living will which I reviewed and stated as much. Patient's would like palliative care consult. Patient would absolutely refuse group home facility. knows that he is declining and narrowing end of his life. They do not want aggressive treatment. He does have repeated falls and has a bruise on his right flank which is painful. PMH: COPD CHF - 2d echo LVEF 20%, global left ventricular dyfunction, normal pulm pressures CAD DM 2 Chronic pedal edema - says it has come and goes. 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 He is on 2 L nasal cannula oxygen. Palliative care came to see him yesterday. Hospice came to see him. He and his have elected for him to go home with hospice. He is very comfortable with this decision. DS: Summary Hospital Course: The patient was admitted and treated for acute CHF and COPD exacerbation. He received IV Lasix and 1 dose of Zaroxolyn. He received high-dose Solu-Medrol. Minimal improvement by the second day. Today he feels much better, consistent with physical exam. The patient did not want to go to a group home facility under any conditions. consulted a palliative care consultation. Neither 1 of them wanted to pursue aggressive management. Palliative care was consulted, and the patient will be discharged home with hospice, with a steroid taper, increased lasix dose, and to continue bronchodilators. - Time Spent with Patient Total time spent providing and/or coordinating discharge services: Less than 30 minutes - Quality: VTE Deep Vein Thrombosis/Pulmonary Embolism Present on Admission: No Exam Vital signs: Vital Signs 02/01/18 14:34 02/01/18 16:00 02/01/18 20:00 Temperature 97.0 F L 94.5 F L Pulse Rate 82 80 83 Respiratory Rate 20 15 18 Blood Pressure 112/75 121/64 Pulse Oximetry 96 93 L 02/01/18 20:15 02/02/18 00:00 02/02/18 07:28 Temperature 97.7 F Pulse Rate 81 77 80 Respiratory Rate 18 18 18 Blood Pressure 112/59 L Pulse Oximetry 98 95 100 02/02/18 08:00 Temperature 95.3 F L Pulse Rate 79 Respiratory Rate 18 Blood Pressure 111/57 L Pulse Oximetry 100 Intake & Output 02/01/18 02/02/18 02/02/18 18:59 06:59 18:59 Output Total 100 / 100 Balance -100 / -100 Weight 74.5 kg 75.9 kg Output: Urine 100 / 100 Other: Weight On Admission 74.5 kg Narrative: GENERAL: Elderly male no apparent distress. CARDIOVASCULAR: Regular rate and rhythm without murmurs, gallops, or rubs. RESPIRATORY: Greatly improved aeration. Clear to auscultation. Breath sounds equal bilaterally. No wheezes, rales, or rhonchi. GASTROINTESTINAL: Abdomen soft, non-tender, nondistended. Normal active bowel sounds MUSCULOSKELETAL: Decreased edema of the lower extremities now 1+.. NEURO: Alert & Oriented x4 to person, place, time, situation. Moves all ext x4 Results Procedures completed during hospitalization: none Labs on day of discharge: Labs from last 24 hours 02/02/18 02/01/18 05:35 12:10 Sodium 138 Potassium 4.4 Chloride 107 Carbon Dioxide 21.2 Anion Gap 10 BUN 38 H Creatinine 1.40 H Estimated GFR 49 L Random Glucose 190 H Calcium 8.2 L Clonazepam Pending Preliminary micro results at discharge 01/31/18 21:13 Aerobic Blood Culture - Preliminary Blood - Peripheral No growth in 2 days Anaerobic Blood Culture - Preliminary No growth in 2 days 01/31/18 21:08 Aerobic Blood Culture - Preliminary Blood - Peripheral No growth in 2 days Anaerobic Blood Culture - Preliminary No growth in 2 days - Impressions ITS Impressions Chest X-Ray 01/31/18 20:59 CONCLUSION: 1. Cardiomegaly with interstitial prominence and small bilateral pleural effusions suggesting some degree of vascular congestion/failure. 2. Bibasilar atelectatic changes. 3. Findings of prior CABG. Discharge Plan - Discharge Disposition Patient Disposition: 50 Hospice/Home - Discharge Condition Condition: Stable - Discharge Order Discharge Orders: Discharge Order (Routine); Ordered 02/02/18 Ordered By: Marsha Gonzalez - Discharge Details Anticipated Discharge Date: 02/02/18 - Physicians Team Primary Care Provider: Alexis Young Attending Provider: Marsha Gonzalez Other Providers: Kaiser Peres MD
--- NOTE | 2018-02-03 01:27 | ECG ---
Date Performed: 02/01/2018 Time Performed: 04:44:00 PTAGE: 83 years EKG: Sinus rhythm WITH OCCASIONAL VENTRICULAR PREMATURE COMPLEXES MARKED LEFT AXIS DEVIATION RBBB ABNORMAL ECG PREVIOUS TRACING : 01/31/2018 23.00 Since the previous tracing, no significant change noted DOCTOR: Duglas Valerio Interpretating Date/Time 02/03/2018 01:26:10
--- NOTE | 2018-02-03 01:34 | ECG ---
Date Performed: 01/31/2018 Time Performed: 23:00:10 PTAGE: 83 years EKG: Sinus rhythm WITH OCCASIONAL SUPRAVENTRICULAR PREMATURE COMPLEXES POSSIBLE LEFT ATRIAL ENLARGEMENT MARKED LEFT AX IS DEVIATION INTRAVENTRICULAR CONDUCTION DELAY ABNORMAL ECG PREVIOUS TRACING : 01/31/2018 21.56 Since the previous tracing, no significant change noted DOCTOR: Duglas Valerio Interpretating Date/Time 02/03/2018 01:33:44
--- NOTE | 2018-02-03 01:40 | ECG ---
Date Performed: 01/31/2018 Time Performed: 21:56:37 PTAGE: 83 years EKG: Sinus rhythm MARKED LEFT AXIS DEVIATION INTRAVENTRICULAR CONDUCTION DELAY ABNORMAL ECG PREVIOUS TRACING : 09/18/2016 04.20 Compared to previous tracing, now with IVCD DOCTOR: Duglas Valerio Interpretating Date/Time 02/03/2018 01:39:00
== END 2018-02-02 12:10 | disposition hospice, home (50) ==
LOC: PHED 20:00 → PHEDA 22:03 → PHEDH 02-01 02:44 → PHICU 02-01 08:15 → PH3 02-01 12:19
PROVIDERS: ADMIT Family Medicine; ATTEND Family Medicine